=== PATIENT | male | born 1945 | race Caucasian/White ===

== ENCOUNTER 2021-02-17 13:37 | Emergency (ER) | payer MEDICARE, SELFPAY ==
[2021-02-17 13:39] VITALS: BP 141/87; PULSE 73; RESP 18; TEMP 36.5; O2SAT 97
[2021-02-17 13:58] LABS: Basophils Absolute Auto 0.1 K/mm3 (0.0-0.1); Basophils Percent Auto 0.4 % (0.2-1.2); Eosinophils Absolute Auto 0.1 K/mm3 (0-0.3); Eosinophils Percent Auto 1.2 % (0-4.4); Hematocrit 44.8 % (42.0-52.0); Hemoglobin 14.5 g/dL (14.0-18.0); Immature Granulocyte Absolute 0.06 K/mm3 (0.00-0.031); Immature Granulocyte Percent A 0.5 % (0-0.5); Lymphocytes Absolute Auto 0.73 K/mm3 (0.9-3.2); Lymphocytes Percent Auto 6.2 % (18.3-44.2); Mean Corpuscular HGB Conc 32.4 g/dl (32-36); Mean Corpuscular Hemoglobin 29.3 pg (26-34); Mean Corpuscular Volume 90.5 fl (80-100); Monocytes Absolute Auto 0.6 K/mm3 (0.1-0.6); Monocytes Percent Auto 4.7 % (2.6-8.5); Neutrophils Absolute Auto 10.3 K/mm3 (1.3-6.7); Platelet Count Result 210 k/mm3 (150-375); Red Blood Count 4.95 M/mm3 (4.6-6.20); Red Cell Distribution Width 14.6 % (11.5-14.5); White Blood Count 11.8 K/mm3 (4.5-10.0)
[2021-02-17 14:12] LABS: Alanine Aminotransferase 19 U/L (4-50); Albumin Level 4.4 g/dL (3.5-5.1); Alkaline Phosphatase 91 U/L (38-126); Anion Gap 11 mmol/L (8-16); Aspartate Amino Transferase 27 U/L (17-59); Bilirubin,Total 2.2 mg/dL (0.2-1.3); Blood Urea Nitrogen 25 mg/dL (9-20); Calcium 9.4 mg/dL (8.4-10.2); Carbon Dioxide 23 mmol/L (22-30); Chloride 105 mmol/L (98-107); Estimated CRCL calculation 36 ml/min; Estimated Glomerular Filt Rate 42; Glucose 122 mg/dL (65-110); Lipase 197 U/L (23-300); Potassium 4.3 mmol/L (3.4-5.0); Sodium 139 mmol/L (137-145)
--- NOTE | 2021-02-17 14:55 | ED.ABDPAIN ---
HPI - Abdominal Pain General Chief Complaint: Abdominal Pain Stated Complaint: LEFT flank pain, hematuria Time Seen by Provider: 02/17/21 13:58 Source: patient Mode of arrival: ambulatory Limitations: no limitations History of Present Illness HPI narrative: 75-year-old male Complains of intermittent left-sided flank pain for 2 or 3 days and now gross hematuria He does not have a fever, no particular dysuria or frequency, no nausea or vomiting He has a history of previous kidney stones most recently in 2008 to the best of his recollection but did not have hematuria with those Related Data Home Medications Medication Instructions Recorded Confirmed allopurinol 100 mg PO HS 02/17/21 02/17/21 aspirin 81 mg PO DAILY 02/17/21 02/17/21 levothyroxine 75 mcg PO DAILY 02/17/21 02/17/21 lisinopril 40 mg PO DAILY 02/17/21 02/17/21 metoprolol succinate 100 mg PO DAILY 02/17/21 02/17/21 rosuvastatin 20 mg PO HS 02/17/21 02/17/21 Allergies Allergy/AdvReac Type Severity Reaction Status Date / Time Sulfa (Sulfonamide Allergy Mild ACHEY Verified 02/17/21 13:55 Antibiotics) Review of Systems Review of Systems: All systems reviewed & are unremarkable except as noted in HPI and below Constitutional: Constitutional: Reports no additional constitutional complaints, Denies chills, Denies fever(s) and Denies headache(s) Eyes: Eyes: Reports no additional eye complaints and Denies change in vision ENT: Denies headache(s) and Denies sore throat Cardiovascular: Cardiovascular: Denies chest pain and Denies dyspnea Respiratory: Respiratory: Denies cough and Denies dyspnea Gastrointestinal: Gastrointestinal: Denies abdominal pain, Denies diarrhea, Denies nausea and Denies vomiting Genitourinary: Genitourinary: Reports hematuria, Denies dysuria and Denies urinary frequency Musculoskeletal: Musculoskeletal: Denies deformity, Denies arthralgias, Denies joint swelling and Denies numbness Integumentary/Breasts: Skin/Breast: Denies rash and Denies wounds Neurologic: Denies headache(s), Denies focal weakness and Denies numbness Psychiatric: Psychiatric: Reports no additional psychiatric complaints Endocrine: Endocrine: Reports no additional endocrine complaints Hematologic/Lymphatic: Hematologic/Lymphatic: Reports no additional hematologic/lymphatic complaints Allergic/Immunologic: Allergic/Immunologic: Reports no additional allergic/immunologic complaints [facility] Social History Social History Gender identity (if verbalized by the patient): Male Exam Const: General: cooperative, no acute distress and alert Orientation/consciousness: patient oriented x3 (alert) HENMT: Head: normal to inspection, normocephalic and atraumatic Ears: external ears normal General nose exam: no epistaxis Eyes: Conjunctivae: conjunctivae normal EOM: EOMs intact bilaterally Neck: Neck: normal visual inspection, supple and no JVD Resp: Effort & Inspection: normal respiratory effort and not labored Auscultation: other (BS =) GI: Inspection: non-distended GI Palp: Yes Soft to palpation, No Tenderness to palpation present (GI), No Guarding due to palpation present (GI) and No Rebound tenderness present : General: Yes no CVA tenderness Other: Normal Skin: General skin exam: normal color and no rashes or lesions noted Neuro: General: patient oriented x3 (alert) and moves all extremities Speech: normal speech Extrem: General: normal to inspection and no pedal edema Psych: Affect: normal affect Course Course Emergency Course: Discussed with radiology to get the correct CT urogram ordered, but, ultimately the patient decided he did not want to have a CT scan here today Gave him a referral to and he can discuss sequencing of that and/or cystoscopy for further evaluation of hematuria Vital Signs Vital signs: Vital Signs Temperature 36.5 C 02/17/21 13:39 Pulse Rate 73 02/17/21 13:39 Respiratory Rate 18 02/17/21 13:39
[2021-02-17 15:00] LABS: Add Urine Microscopic? YES; Appearance Urine Cloudy (Clear); Bilirubin Urine Negative (Negative); Blood Urine 3+ (Negative); Color Urine Yellow (Yellow); Glucose Urine UA Negative (Negative); Ketones Urine Negative (Negative); Leukocyte Esterase Ur Trace LEU/UL (Negative); Mucus Urine Rare /lpf; Nitrate Urine Negative (Negative); Protein Urine 2+ mg/dL (Negative); RBC Urine >75 /hpf (0-2); Specific Grav Ur 1.025 (1.001-1.035); WBC Urine 0-3 /hpf
--- NOTE | 2021-02-17 15:05 | PC.NURSE ---
Pt refusing to have CT scan done. EDP made aware
[2021-02-17 16:18] VITALS: BP 155/64; PULSE 60; RESP 18; TEMP 36.4; O2SAT 99
== END 2021-02-17 16:18 | disposition home or self-care (01) ==
PROVIDERS: Emergency Medicine; Emergency Provider Emergency Medicine; PCP Family Medicine
DX: R31.9 Hematuria, unspecified (principal); Z87.442 Personal history of urinary calculi; Z88.2 Allergy status to sulfonamides
CPT/HCPCS: 36415; 80053; 81001; 83690; 85025; 99283

== ENCOUNTER 2023-11-07 09:22 | Outpatient (CLI) | payer MEDICARE, SELFPAY ==
[2023-11-07 10:11] LABS: Basophils Absolute Auto 0.1 K/mm3 (0.0-0.1); Basophils Percent Auto 0.8 % (0.2-1.2); Eosinophils Absolute Auto 0.6 K/mm3 (0-0.3); Eosinophils Percent Auto 9.4 % (0-4.4); Hemoglobin 14.4 g/dL (14.0-18.0); Immature Granulocyte Absolute 0.01 K/mm3 (0.00-0.031); Immature Granulocyte Percent A 0.2 % (0-0.5); Lymphocytes Absolute Auto 1.12 K/mm3 (0.9-3.2); Lymphocytes Percent Auto 17.8 % (18.3-44.2); Mean Corpuscular HGB Conc 32.7 g/dl (32-36); Mean Corpuscular Hemoglobin 30.1 pg (26-34); Mean Corpuscular Volume 92.1 fl (80-100); Mean Platelet Volume 10.6 fl (7.4-10.4); Monocytes Absolute Auto 0.5 K/mm3 (0.1-0.6); Monocytes Percent Auto 7.1 % (2.6-8.5); Neutrophils Absolute Auto 4.1 K/mm3 (1.3-6.7); Neutrophils Percent Auto 64.7 % (45.5-73.1); Platelet Count Result 187 k/mm3 (150-375); Red Blood Count 4.78 M/mm3 (4.6-6.20); Red Cell Distribution Width 14.6 % (11.5-14.5); White Blood Count 6.3 K/mm3 (4.5-10.0)
[2023-11-07 10:52] LABS: Alanine Aminotransferase 21 U/L (6-50); Albumin Level 4.5 g/dL (3.5-5.1); Alkaline Phosphatase 90 U/L (38-126); Anion Gap 9 mmol/L (4-12); Aspartate Amino Transferase 28 U/L (17-59); Bilirubin,Total 2.2 mg/dL (0.2-1.3); Blood Urea Nitrogen 20 mg/dL (9-20); Calcium 9.4 mg/dL (8.4-10.2); Carbon Dioxide 24 mmol/L (22-30); Chloride 110 mmol/L (98-107); Cholesterol 107 mg/dL (0-200); Estimated Glomerular Filt Rate 53; Glucose 112 mg/dL (65-110); HDL Direct 31 mg/dL; Potassium 4.1 mmol/L (3.4-5.0); Sodium 143 mmol/L (137-145); Triglycerides 133 mg/dL (<150)
[2023-11-07 11:03] LABS: LDL Cholesterol Direct 61 mg/dL
[2023-11-07 11:23] LABS: Prostate Specific Antigen 12.5 ng/mL (< OR = 4.0)
== END 2023-11-07 09:23 | disposition home or self-care (01) ==
PROVIDERS: PCP Family Medicine; Referring Provider Nurse Practitioner Adult Health; Visit Provider Family Medicine
DX: Z12.5 Encounter for screening for malignant neoplasm of prostate (principal); D64.9 Anemia, unspecified; E78.2 Mixed hyperlipidemia; E03.9 Hypothyroidism, unspecified; I10 Essential (primary) hypertension; I63.50 Cerebral infarction due to unspecified occlusion or stenosis of unspecified cerebral artery; I25.10 Atherosclerotic heart disease of native coronary artery without angina pectoris
CPT/HCPCS: 36415; 80053; 80061; 84153; 84443; 85025; G0103

== ENCOUNTER 2024-11-09 08:13 | Outpatient (CLI) | payer MEDICARE, SELFPAY ==
--- OUTSIDE RECORDS SUMMARY | 2024-11-09 08:25 | XMS_ITS | Data Portability ---
Author Organization [facility], Main Office Address [address] [place] [address] Assessment No assessment recorded. Plan of Treatment Reminders Order Date Submit Date Provider Last Modified By Organization Details Last Modified Time Details Appointments None recorded. Lab uric acid, serum or plasma 2022 023 [facility] (Lab), [address] [place], [address], 20:19:25 lipid panel, serum 2022 023 [facility] (Lab), [address] [place], [address], 20:19:30 hepatic function panel, serum 2022 023 [facility] (Lab), [address] [place], [address], 20:19:47 PSA, total, serum or plasma 2022 023 [facility] (Lab), [address] [place], [address], 20:33:54 CBC w/ auto diff 2022 023 [facility] (Lab), [address] [place], [address], 20:13:13 BMP, serum or plasma 2022 023 [facility] (Lab), [address] [place], [address], 3 20:19:20 TSH, serum or plasma 2022 023 [facility] (Lab), [address] [place], [address], 3 20:33:38 T4, free, serum 2022 023 [facility] (Lab), [address] [place], [address], 3 20:17:07 uric acid, serum or plasma [address] (Lab), [address] [place], [address], 3 14:53:42 CBC w/ auto diff [address] (Lab), [address] [place], [address], 3 14:51:38 BMP, serum or plasma [address] (Lab), [address] [place], [address], 3 14:52:25 TSH, serum or plasma [address] (Lab), [address] [place], [address], 3 14:54:11 T4, free, serum [address] (Lab), [address] [place], [address], 3 14:54:55 lipid panel, serum [address] (Lab), [address] [place], [address], 14:52:46 hepatic function panel, serum [address] (Lab), [address] [place], [address], 14:53:20 Referral None recorded. Procedures None recorded. Surgeries None recorded. Imaging None recorded. Medication Orders None recorded. Patient TargetsNo targets recorded. Patient Instructions Encounter Date Encounter Id Patient Instructions Last Modified By Organization Details Last Modified Time 05/02/2023 [id number] dementia rating scale-2* Not available 05/02/2023 11:31:52 multi-dimensiona l health assessment questionnaire* [email or web address] Not available 05/02/2023 11:31:56 Personalized [facility] Plan and Screening Recommendations Advance Directives - Do you have one? Advance Directives - Do we have your advance directive on file in your health record? Primary Prevention/Interven tion (prevents or decreases the chance of common diseases from occurring) Smoking Risk: Non Smoker Alcohol Misuse Screening: Weight: Physical activity: Appropriate physical activity Nutrition: Fall Risk (screened today): Vaccines Pneumococcal: Ordered Recommended today Recommended today, but you have declined Influenza: Ordered Recommended today Recommended today, but you have declined Chronic Disease Risks Stroke: I have no recommendations Act migel diagnosis, Continue current treatment plan Heart Attack: I have no recommendations Act migel diagnosis, Continue current treatment plan Clogging of the Arteries: I have no recommendations Act migel diagnosis, Continue current treatment plan Diabetes: Active diagnosis, Continue current treatment plan Secondary Prevention/Interven tion (detects treatable diseases before they may cause symptoms, disability, or ) Prostate Cancer Screening: Colon Cancer Screening: Colonoscopy No screening necessary Date Screening Last Performed: Eye Disease Screening: Dementia Risk: Depression Screening: Active diagnosis, Continue current treatment plan Not available 05/02/2023 10:43:04 Reason for Referral None Reported. Results Created Date Observation Date Name Description Value Unit Range Abnormal Flag Note LastModifiedBy Organization Detail LastModifiedTime 03/20/202022 BASIC METAB OLIC PANEL sodium 142 mmol/ L 137-14 5 Not Available [facility] (Lab) [address] [place], [address], 03/20/2022 20:56:06 03/20/20 22 03/20/2022 BASIC METAB OLIC PANEL potassium 4.3 mmol/ L 3.5-5. 1 Not Available [facility] (Lab) [address] [place], [address], 03/20/2022 20:56:06 03/20/20 22 03/20/2022 BASIC METAB OLIC PANEL chloride 105 mmol/ L 98-107 Not Available [facility] (Lab) [address] [place], [address], 03/20/2022 20:56:06 03/20/20 22 03/20/2022 BASIC METAB OLIC PANEL carbon dioxide 26 mmol/ L 22-30 Not Available [facility] (Lab) [address] [place], [address], 03/20/2022 20:56:06 03/20/20 22 03/20/2022 BASIC METAB OLIC PANEL anion gap 15.3 mmol/ L 14-22 Not Available [facility] (Lab) [address] [place], [address], 03/20/2022 20:56:06 03/20/20 22 03/20/2022 BASIC METAB OLIC PANEL glucose 108 mg/dL 70-99 high Not Available [facility] (Lab) [address] [place], [address], 03/20/2022 20:56:06 03/20/20 22 03/20/2022 BASIC METAB OLIC PANEL BUN 19 mg/dL 8-19 Not Available [facility] (Lab) [address] [place], [address], 03/20/2022 20:56:03/20/2003/20/2022 BASIC METAB OLIC PANEL creatinine 1.32 mg/dL 0.66-1 .25 high Not Available [facility] (Lab) [address] [place], [address], 03/20/2022 20:56:03/20/20 22 03/20/2022 BASIC METAB OLIC PANEL GFR 53 Refer ence Range : Gamerco ge GFR Healt hy Adult : >60 mL/mi n/1.7 3 m2 Chron ic Kidne y Disea se: 15-60 mL/mi n/1.7 3 m2 Kidne y Failu re: <15/m L/min /1.73 m2 www.n iddk. nih.g ov The MDRD study equat ion has not been valid ated in child kd <18 years of age; pregn ant women ; the elder ly >85 years of age; or in some racia l or ethni c subgr oups, such as Hispa nics. Outsi de the valid ated sariah eters , estim ated GFR is less accur ate, requi ring clini darrell judgm ent on a case- by-ca se basis . Clini darrell inter preta tion for other races and ages must be made by the clini ezra. The MDRD study equat ion has not been valid ated for the evalu ation of serum creat inine relat ed to nutri sonja l statu s or medic ation usage . For perso ns <18 years of age, a pedia tric GFR calcu lator is avail able on the F websi te: https ://ww w.kid jennifer.o rg/pr ofess ional s/kdo qi/gf r_cal culat or Not Available [facility] (Lab) [address] [place], [address], 03/20/2022 20:56:03/20/2003/20/2022 BASIC METAB OLIC PANEL calcium 9.5 mg/dL 8.4-10 .2 Not Available [facility] (Lab) [address] [place], [address], 03/20/2022 20:56:06 03/20/20 22 03/20/2022 PSA, TOTAL PSA, total 8.14 NG/mL 0.00-4 .00 high Not Available [facility] (Lab) [address] [place], [address], 03/20/2022 21:36:29 03/20/20 22 03/20/2022 TSH thyroid-stim ulating hormone 5.220 uIU/m L 0.465- 4.680 high Not Available [facility] (Lab) [address] [place], [address], 03/20/2022 21:36:24 03/20/20 22 03/20/2022 T4 FREE free T4 1.34 NG/dL 0.78-2 .19 Not Available [facility] (Lab) [address] [place], [address], 03/20/2022 20:59:37 03/20/20 22 03/20/2022 HEPAT IC/LI REGULO PANEL alkaline phosphatase 84 U/L 38-126 Not Available [facility] (Lab) [address] [place], [address], 03/20/2022 20:56:20 03/20/20 22 03/20/2022 HEPAT IC/LI REGULO PANEL alanine aminotransfe rase 16 U/L 0-50 Not Available [facility] (Lab) [address] [place], [address], 03/20/2022 20:56:20 03/20/20 22 03/20/2022 HEPAT IC/LI REGULO PANEL aspartate aminotransfe rase 24 U/L 15-46 Not Available [facility] (Lab) [address] [place], [address], 03/20/2022 20:56:20 03/20/20 22 03/20/2022 HEPAT IC/LI REGULO PANEL bilirubin, total 1.70 mg/dL 0.20-1 .30 high Not Available [facility] (Lab) [address] [place], [address], 03/20/2022 20:56:20 03/20/20 22 03/20/2022 HEPAT IC/LI REGULO PANEL bilirubin, conjugated (direct) 0.00 mg/dL 0.00-0 .30 Not Available [facility] (Lab) [address] [place], [address], 03/20/2022 20:56:20 03/20/20 22 03/20/2022 HEPAT IC/LI REGULO PANEL biliurubin,u ncong. (indirect) 1.20 mg/dL 0.00-1 .1 high Not Available [facility] (Lab) [address] [place], [address], 03/20/2022 20:56:20 03/20/20 22 03/20/2022 HEPAT IC/LI REGULO PANEL total protein 8.1 g/dL 6.3-8. 2 Not Available [facility] (Lab) [address] [place], [address], 03/20/2022 20:56:20 03/20/20 22 03/20/2022 HEPAT IC/LI REGULO PANEL albumin 4.6 g/dL 3.0-4. 4 high Not Available [facility] (Lab) [address] [place], [address], 03/20/2022 20:56:20 03/20/20 22 03/20/2022 HEPAT IC/LI REGULO PANEL globulin 3.5 g/dL 2.6-4. 2 Not Available [facility] (Lab) [address] [place], [address], 03/20/2022 20:56:20 03/20/20 22 03/20/2022 HEPAT IC/LI REGULO PANEL A/G ratio 1.3 ratio 1.0-2. 0 Not Available [facility] (Lab) [address] [place], [address], 03/20/2022 20:56:20 03/20/20 22 03/20/2022 LIPID PANEL cholesterol 109 mg/dL 140-19 9 low NIH SHADIA NSUS RECOM MENDA TION FOR CARLIN STERO L: ADULT CHILD LOW RISK: <200 <170 BORDE RLINE : <200- 239 ----- HIGH RISK: >240 >200 Not Available [facility] (Lab) [address] [place], [address], 03/20/2022 20:56:16 03/20/20 22 03/20/2022 LIPID PANEL triglyceride s 184 mg/dL 0-150 high NIH SHADIA NSUS REPOR T RECOM MENDA TION FOR TRIGL YCERI BONNIE: ADULT CHILD LOW RISK: <150 ----- BODER LINE: 150-1 99 ----- HIGH RISK: >200 ----- Not Available [facility] (Lab) [address] [place], [address], 03/20/2022 20:56:16 03/20/20 22 03/20/2022 LIPID PANEL HDL cholesterol 29 mg/dL 40- low Not Available [facility] (Lab) [address] [place], [address], 03/20/2022 20:56:16 03/20/20 22 03/20/2022 LIPID PANEL LDL cholesterol, calculated 43 mg/dL 0-130 NIH SHADIA NSUS REPOR T RECOM MENDA TIONS FOR LDL: ADULT CHILD LOW RISK <130 <110 (OPTI MAL LDL) <100 ----- BORDE RLINE : 130-1 59 ----- HIGH RISK: >160 >130 A TRIGL YCERI DE RESUL T >400 INVAL IDATE S THE CALCU LATIO N FOR LDL FRACT IONAT ION - THE LDL RESUL T WILL NOT BE REPOR LUIS. Not Available [facility] (Lab) [address] [place], [address], 03/20/2022 20:56:16 03/20/20 22 03/20/2022 URIC ACID SERUM uric acid 6.1 mg/dL 3.5-8. 5 Not Available [facility] (Lab) [address] [place], [address], 03/20/2022 20:56:10 03/20/20 22 03/20/2022 CBC/C OMPLE TE BLD COUNT W/DIF F white blood cells 7.0 x10'3 /uL 4.2-10 .8 Not Available [facility] (Lab) [address] [facility] [place], [address], 03/20/2022 20:10:52 03/20/20 22 03/20/2022 CBC/C OMPLE TE BLD COUNT W/DIF F red blood cells 4.82 x10'6 /uL 4.10-5 .80 Not Available [facility] (Lab) [address] [place], [address], 03/20/2022 20:10:52 03/20/20 22 03/20/2022 CBC/C OMPLE TE BLD COUNT W/DIF F hemoglobin 14.2 g/dL 13.2-1 7.0 Not Available [facility] (Lab) [address] [place], [address], 03/20/2022 20:10:52 03/20/20 22 03/20/2022 CBC/C OMPLE TE BLD COUNT W/DIF F hematocrit 45.3 % 39.3-5 0.0 Not Available [facility] (Lab) [address] [place], [address], 03/20/2022 20:10:52 03/20/20 22 03/20/2022 CBC/C OMPLE TE BLD COUNT W/DIF F mean red cell volume 94.0 fL 80.0-9 7.0 Not Available [facility] (Lab) [address] [place], [address], 03/20/2022 20:10:52 03/20/20 22 03/20/2022 CBC/C OMPLE TE BLD COUNT W/DIF F mean red cell hemoglobin 29.5 pg 27.0-3 3.0 Not Available [facility] (Lab) [address] [place], [address], 03/20/2022 20:10:52 03/20/20 22 03/20/2022 CBC/C OMPLE TE BLD COUNT W/DIF F mean RBC HGB concentratio n 31.3 g/dL 31.0-3 6.0 Not Available [facility] (Lab) [address] [place], [address], 03/20/2022 20:10:52 03/20/20 22 03/20/2022 CBC/C OMPLE TE BLD COUNT W/DIF F red cell distribution width 14.6 % 11.8-1 5.5 Not Available [facility] (Lab) [address] [place], [address], 03/20/2022 20:10:52 03/20/20 22 03/20/2022 CBC/C OMPLE TE BLD COUNT W/DIF F platelets 242 x10'3 /uL 150-40 0 Not Available [facility] (Lab) [address] [place], [address], 03/20/2022 20:10:52 03/20/20 22 03/20/2022 CBC/C OMPLE TE BLD COUNT W/DIF F mean platelet volume 11.4 fL 9.0-12 .4 Not Available [facility] (Lab) [address] [place], [address], 03/20/2022 20:10:52 03/20/20 22 03/20/2022 CBC/C OMPLE TE BLD COUNT W/DIF F neutrophils 66.6 % 39.0-7 2.0 Not Available [facility] (Lab) [address] [place], [address], 03/20/2022 20:10:52 03/20/20 22 03/20/2022 CBC/C OMPLE TE BLD COUNT W/DIF F lymphocytes 17.6 % 16.0-4 7.0 Not Available [facility] (Lab) [address] [place], [address], 03/20/2022 20:10:52 03/20/20 22 03/20/2022 CBC/C OMPLE TE BLD COUNT W/DIF F monocytes 7.9 % 5.0-12 .0 Not Available [facility] (Lab) [address] [place], [address], 03/20/2022 20:10:52 03/20/20 22 03/20/2022 CBC/C OMPLE TE BLD COUNT W/DIF F eosinophils 6.9 % 1.0-7. 0 Not Available [facility] (Lab) [address] [place], [address], 03/20/2022 20:10:52 03/20/20 22 03/20/2022 CBC/C OMPLE TE BLD COUNT W/DIF F basophils 0.9 % 0.0-2. 0 Not Available [facility] (Lab) [address] [place], [address], 03/20/2022 20:10:52 03/20/20 22 03/20/2022 CBC/C OMPLE TE BLD COUNT W/DIF F immature granulocytes 0.1 % 0.00-0 .50 Not Available [facility] (Lab) [address] [place], [address], 03/20/2022 20:10:52 03/20/20 22 03/20/2022 CBC/C OMPLE TE BLD COUNT W/DIF F neutrophils, absolute count 4.63 x10'3 /uL 1.5-8. 0 Not Available [facility] (Lab) [address] [place], [address], 03/20/2022 20:10:52 03/20/20 22 03/20/2022 CBC/C OMPLE TE BLD COUNT W/DIF F lymphocytes, absolute count 1.22 x10'3 /uL 1.07-3 .43 Not Available [facility] (Lab) [address] [place], [address], 03/20/2022 20:10:52 03/20/20 22 03/20/2022 CBC/C OMPLE TE BLD COUNT W/DIF F monocytes, absolute count 0.55 x10'3 /uL 0.29-0 .99 Not Available [facility] (Lab) [address] [place], [address], 03/20/2022 20:10:52 03/20/20 22 03/20/2022 CBC/C OMPLE TE BLD COUNT W/DIF F eosinophils, absolute count 0.48 x10'3 /uL 0.02-0 .53 Not Available [facility] (Lab) [address] [place], [address], 03/20/2022 20:10:52 03/20/20 22 03/20/2022 CBC/C OMPLE TE BLD COUNT W/DIF F basophils, absolute count 0.06 x10'3 /uL 0.01-0 .08 Not Available [facility] (Lab) [address] [place], [address], 03/20/2022 20:10:52 03/20/20 22 03/20/2022 CBC/C OMPLE TE BLD COUNT W/DIF F immature granulocytes ,absolute 0.01 x10'3 /uL 0.00-0 .05 Not Available [facility] (Lab) [address] [place], [address], 03/20/2022 20:10:52 03/20/20 22 03/20/2022 CBC/C OMPLE TE BLD COUNT W/DIF F nucleated red blood cells 0.0 % -0 Not Available [facility] (Lab) [address] [place], [address], 03/20/2022 20:10:52 03/20/20 22 03/20/2022 CBC/C OMPLE TE BLD COUNT W/DIF F NRBC# 0.00 x10'3 /uL Not Available [facility] (Lab) [address] [place], [address], 03/20/2022 20:10:52 06/18/20 22 06/20/2022 T4 FREE free T4 1.56 NG/dL 0.78-2 .19 Not Available [facility] (Lab) [address] [place], [address], 06/20/2022 21:36:08 06/18/20 22 06/18/2022 TSH thyroid-stim ulating hormone 0.363 uIU/m L 0.465- 4.680 low Not Available [facility] (Lab) [address] [place], [address], 06/18/2022 22:02:52 06/18/20 22 06/18/2022 THYRO XINE/ T4 TOTAL T4, total 9.69 mcg/d L 5.53-1 1.00 Not Available [facility] (Lab) [address] [place], [address], 06/18/2022 21:50:12 12/18/19 23 12/17/2022 CBC/C OMPLE TE BLD COUNT W/DIF F white blood cells 7.3 x10'3 /uL 4.2-10 .8 Not Available [facility] (Lab) [address] [place], [address], 12/17/2022 20:31:45 12/18/19 23 12/17/2022 CBC/C OMPLE TE BLD COUNT W/DIF F red blood cells 4.83 x10'6 /uL 4.10-5 .80 Not Available [facility] (Lab) [address] [place], [address], 12/17/2022 20:31:45 12/18/19 23 12/17/2022 CBC/C OMPLE TE BLD COUNT W/DIF F hemoglobin 14.4 g/dL 13.2-1 7.0 Not Available [facility] (Lab) [address] [facility] [place], [address], 12/17/2022 20:31:45 12/18/19 23 12/17/2022 CBC/C OMPLE TE BLD COUNT W/DIF F hematocrit 45.0 % 39.3-5 0.0 Not Available [facility] (Lab) [address] [place], [address], 12/17/2022 20:31:45 12/18/19 23 12/17/2022 CBC/C OMPLE TE BLD COUNT W/DIF F mean red cell volume 93.2 fL 80.0-9 7.0 Not Available [facility] (Lab) [address] [place], [address], 12/17/2022 20:31:45 12/18/19 23 12/17/2022 CBC/C OMPLE TE BLD COUNT W/DIF F mean red cell hemoglobin 29.8 pg 27.0-3 3.0 Not Available [facility] (Lab) [address] [place], [address], 12/17/2022 20:31:45 12/18/19 23 12/17/2022 CBC/C OMPLE TE BLD COUNT W/DIF F mean RBC HGB concentratio n 32.0 g/dL 31.0-3 6.0 Not Available [facility] (Lab) [address] [place], [address], 12/17/2022 20:31:45 12/18/19 23 12/17/2022 CBC/C OMPLE TE BLD COUNT W/DIF F red cell distribution width 14.1 % 11.8-1 5.5 Not Available [facility] (Lab) [address] [place], [address], 12/17/2022 20:31:45 12/18/19 23 12/17/2022 CBC/C OMPLE TE BLD COUNT W/DIF F platelets 219 x10'3 /uL 150-40 0 Not Available [facility] (Lab) [address] [place], [address], 12/17/2022 20:31:45 12/18/19 23 12/17/2022 CBC/C OMPLE TE BLD COUNT W/DIF F mean platelet volume 11.6 fL 9.0-12 .4 Not Available [facility] (Lab) [address] [place], [address], 12/17/2022 20:31:45 12/18/19 23 12/17/2022 CBC/C OMPLE TE BLD COUNT W/DIF F neutrophils 69.2 % 39.0-7 2.0 Not Available [facility] (Lab) [address] [place], [address], 12/17/2022 20:31:45 12/18/19 23 12/17/2022 CBC/C OMPLE TE BLD COUNT W/DIF F lymphocytes 13.9 % 16.0-4 7.0 low Not Available [facility] (Lab) [address] [place], [address], 12/17/2022 20:31:45 12/18/19 23 12/17/2022 CBC/C OMPLE TE BLD COUNT W/DIF F monocytes 7.0 % 5.0-12 .0 Not Available [facility] (Lab) [address] [place], [address], 12/17/2022 20:31:45 12/18/19 23 12/17/2022 CBC/C OMPLE TE BLD COUNT W/DIF F eosinophils 8.5 % 1.0-7. 0 high Not Available [facility] (Lab) [address] [place], [address], 12/17/2022 20:31:45 12/18/19 23 12/17/2022 CBC/C OMPLE TE BLD COUNT W/DIF F basophils 1.0 % 0.0-2. 0 Not Available [facility] (Lab) [address] [place], [address], 12/17/2022 20:31:45 12/18/19 23 12/17/2022 CBC/C OMPLE TE BLD COUNT W/DIF F immature granulocytes 0.4 % 0.00-0 .50 Not Available [facility] (Lab) [address] [place], [address], 12/17/2022 20:31:45 12/18/19 23 12/17/2022 CBC/C OMPLE TE BLD COUNT W/DIF F neutrophils, absolute count 5.08 x10'3 /uL 1.5-8. 0 Not Available [facility] (Lab) [address] [place], [address], 12/17/2022 20:31:45 12/18/19 23 12/17/2022 CBC/C OMPLE TE BLD COUNT W/DIF F lymphocytes, absolute count 1.02 x10'3 /uL 1.07-3 .43 low Not Available [facility] (Lab) [address] [place], [address], 12/17/2022 20:31:45 12/18/19 23 12/17/2022 CBC/C OMPLE TE BLD COUNT W/DIF F monocytes, absolute count 0.51 x10'3 /uL 0.29-0 .99 Not Available [facility] (Lab) [address] [place], [address], 12/17/2022 20:31:45 06/12/20 23 12/17/2022 CBC/C OMPLE TE BLD COUNT W/DIF F eosinophils, absolute count 0.62 x10'3 /uL 0.02-0 .53 high Not Available [facility] (Lab) [address] [place], [address], 12/17/2022 20:31:45 12/18/19 23 12/17/2022 CBC/C OMPLE TE BLD COUNT W/DIF F basophils, absolute count 0.07 x10'3 /uL 0.01-0 .08 Not Available [facility] (Lab) [address] [place], [address], 12/17/2022 20:31:45 12/18/19 23 12/17/2022 CBC/C OMPLE TE BLD COUNT W/DIF F immature granulocytes ,absolute 0.03 x10'3 /uL 0.00-0 .05 Not Available [facility] (Lab) [address] [place], [address], 12/17/2022 20:31:45 12/18/19 23 12/17/2022 CBC/C OMPLE TE BLD COUNT W/DIF F nucleated red blood cells 0.0 % -0 Not Available [facility] (Lab) [address] [place], [address], 12/17/2022 20:31:45 12/18/19 23 12/17/2022 CBC/C OMPLE TE BLD COUNT W/DIF F NRBC# 0.00 x10'3 /uL Not Available [facility] (Lab) [address] [place], [address], 12/17/2022 20:31:45 12/18/19 23 12/17/2022 BASIC METAB OLIC PANEL sodium 142 mmol/ L 137-14 5 Not Available [facility] (Lab) [address] [place], [address], 12/17/2022 20:52:17 12/18/19 23 12/17/2022 BASIC METAB OLIC PANEL potassium 4.2 mmol/ L 3.5-5. 1 Not Available [facility] (Lab) [address] [place], [address], 12/17/2022 20:52:17 12/18/19 23 12/17/2022 BASIC METAB OLIC PANEL chloride 106 mmol/ L 98-107 Not Available [facility] (Lab) [address] [place], [address], 12/17/2022 20:52:17 12/18/19 23 12/17/2022 BASIC METAB OLIC PANEL carbon dioxide 23 mmol/ L 22-30 Not Available [facility] (Lab) [address] [place], [address], 12/17/2022 20:52:17 12/18/19 23 12/17/2022 BASIC METAB OLIC PANEL anion gap 17.2 mmol/ L 14-22 Not Available [facility] (Lab) [address] [place], [address], 12/17/2022 20:52:17 12/18/19 23 12/17/2022 BASIC METAB OLIC PANEL glucose 111 mg/dL 70-99 high Not Available [facility] (Lab) [address] [place], [address], 12/17/2022 20:52:17 12/18/19 23 12/17/2022 BASIC METAB OLIC PANEL BUN 19 mg/dL 8-19 Not Available [facility] (Lab) [address] [place], [address], 12/17/2022 20:52:17 12/18/19 23 12/17/2022 BASIC METAB OLIC PANEL creatinine 1.18 mg/dL 0.66-1 .25 Not Available [facility] (Lab) [address] [place], [address], 12/17/2022 20:52:17 12/18/19 23 12/17/2022 BASIC METAB OLIC PANEL GFR 60 Refer ence Range : Gamerco ge GFR Healt hy Adult : >60 mL/mi n/1.7 3 m2 Chron ic Kidne y Disea se: 15-60 mL/mi n/1.7 3 m2 Kidne y Failu re: <15/m L/min /1.73 m2 www.n iddk. nih.g ov The MDRD study equat ion has not been valid ated in child kd <18 years of age; pregn ant women ; the elder ly >85 years of age; or in some racia l or ethni c subgr oups, such as Hispa nics. Outsi de the valid ated sariah eters , estim ated GFR is less accur ate, requi ring clini darrell judgm ent on a case- by-ca se basis . Clini darrell inter preta tion for other races and ages must be made by the clini ezra. The MDRD study equat ion has not been valid ated for the evalu ation of serum creat inine relat ed to nutri sonja l statu s or medic ation usage . For perso ns <18 years of age, a pedia tric GFR calcu lator is avail able on the [facility] websi te: https :[email or web address] w.anjelica rodriguez.o sara/pr ofess ional s/kdo qi/gf r_cal culat or Not Available [facility] (Lab) [address] [place], [address], 12/17/2022 20:52:17 12/18/1912/17/2022 BASIC METAB OLIC PANEL calcium 9.2 mg/dL 8.4-10 .2 Not Available [facility] (Lab) [address] [place], [address], 12/17/2022 20:52:17 12/18/19 23 12/17/2022 URIC ACID SERUM uric acid 5.6 mg/dL 3.5-8. 5 Not Available [facility] [facility] (Lab) [address] [place], [address], 12/17/2022 20:52:18 12/18/19 23 12/17/2022 LIPID PANEL cholesterol 117 mg/dL 140-19 9 low NIH SHADIA NSUS RECOM MENDA TION FOR CARLIN STERO L: ADULT CHILD LOW RISK: <200 <170 BORDE RLINE : <200- 239 ----- HIGH RISK: >240 >200 Not Available [facility] (Lab) [address] [place], [address], 12/17/2022 20:52:23 12/18/19 23 12/17/2022 LIPID PANEL triglyceride s 232 mg/dL 0-150 high NIH SHADIA NSUS REPOR T RECOM MENDA TION FOR TRIGL YCERI BONNIE: ADULT CHILD LOW RISK: <150 ----- BODER LINE: 150-1 99 ----- HIGH RISK: >200 ----- Not Available [facility] (Lab) [address] [place], [address], 12/17/2022 20:52:23 12/18/19 23 12/17/2022 LIPID PANEL HDL cholesterol 30 mg/dL 40- low Not Available [facility] (Lab) [address] [place], [address], 12/17/2022 20:52:23 12/18/19 23 12/17/2022 LIPID PANEL LDL cholesterol, calculated 41 mg/dL 0-130 NIH SHADIA NSUS REPOR T RECOM MENDA TIONS FOR LDL: ADULT CHILD LOW RISK <130 <110 (OPTI MAL LDL) <100 ----- BORDE RLINE : 130-1 59 ----- HIGH RISK: >160 >130 A TRIGL YCERI DE RESUL T >400 INVAL IDATE S THE CALCU LATIO N FOR LDL FRACT IONAT ION - THE LDL RESUL T WILL NOT BE REPOR LUIS. Not Available [facility] (Lab) [address] [place], [address], 12/17/2022 20:52:23 12/18/19 23 12/17/2022 HEPAT IC/LI REGULO PANEL alkaline phosphatase 84 U/L 38-126 Not Available [facility] (Lab) [address] [place], [address], 12/17/2022 20:52:24 12/18/19 23 12/17/2022 HEPAT IC/LI REGULO PANEL alanine aminotransfe rase 21 U/L 0-50 Not Available [facility] (Lab) [address] [place], [address], 12/17/2022 20:52:24 12/18/19 23 12/17/2022 HEPAT IC/LI REGULO PANEL aspartate aminotransfe rase 25 U/L 15-46 Not Available [facility] (Lab) [address] [place], [address], 12/17/2022 20:52:24 12/18/19 23 12/17/2022 HEPAT IC/LI REGULO PANEL bilirubin, total 1.70 mg/dL 0.20-1 .30 high Not Available [facility] (Lab) [address] [place], [address], 12/17/2022 20:52:24 12/18/19 23 12/17/2022 HEPAT IC/LI REGULO PANEL bilirubin, conjugated (direct) 0.00 mg/dL 0.00-0 .30 Not Available [facility] (Lab) [address] [place], [address], 12/17/2022 20:52:24 12/18/19 23 12/17/2022 HEPAT IC/LI REGULO PANEL biliurubin,u ncong. (indirect) 1.40 mg/dL 0.00-1 .1 high Not Available [facility] (Lab) [address] [place], [address], 12/17/2022 20:52:24 12/18/19 23 12/17/2022 HEPAT IC/LI REGULO PANEL total protein 7.6 g/dL 6.3-8. 2 Not Available [facility] (Lab) [address] [place], [address], 12/17/2022 20:52:24 12/18/19 23 12/17/2022 HEPAT IC/LI REGULO PANEL albumin 3.9 g/dL 3.0-4. 4 Not Available [facility] (Lab) [address] [place], [address], 12/17/2022 20:52:24 12/18/19 23 12/17/2022 HEPAT IC/LI REGULO PANEL globulin 3.7 g/dL 2.6-4. 2 Not Available [facility] (Lab) [address] [place], [address], 12/17/2022 20:52:24 12/18/19 23 12/17/2022 HEPAT IC/LI REGULO PANEL A/G ratio 1.1 ratio 1.0-2. 0 Not Available [facility] (Lab) [address] [place], [address], 12/17/2022 20:52:24 12/18/19 23 12/17/2022 T4 FREE free T4 1.32 NG/dL 0.78-2 .19 Not Available [facility] (Lab) [address] [place], [address], 12/17/2022 20:53:32 12/18/19 23 12/17/2022 TSH thyroid-stim ulating hormone 4.020 uIU/m L 0.465- 4.680 Not Available [facility] (Lab) [address] [place], [address], 12/17/2022 21:26:46 05/02/20 23 05/02/2023 CBC/C OMPLE TE BLD COUNT W/DIF F white blood cells 7.0 x10'3 /uL 4.2-10 .8 Not Available [facility] (Lab) [address] [place], [address], 05/02/2023 20:13:13 05/02/2005/02/2023 CBC/C OMPLE TE BLD COUNT W/DIF F red blood cells 4.77 x10'6 /uL 4.10-5 .80 Not Available [facility] (Lab) [address] [place], [address], 05/02/2023 20:13:13 05/02/2005/02/2023 CBC/C OMPLE TE BLD COUNT W/DIF F hemoglobin 14.7 g/dL 13.2-1 7.0 Not Available [facility] (Lab) [address] [place], [address], 05/02/2023 20:13:13 05/02/2005/02/2023 CBC/C OMPLE TE BLD COUNT W/DIF F hematocrit 45.5 % 39.3-5 0.0 Not Available [facility] (Lab) [address] [place], [address], 05/02/2023 20:13:13 05/02/2005/02/2023 CBC/C OMPLE TE BLD COUNT W/DIF F mean red cell volume 95.4 fL 80.0-9 7.0 Not Available [facility] (Lab) [address] [place], [address], 05/02/2023 20:13:13 05/02/2005/02/2023 CBC/C OMPLE TE BLD COUNT W/DIF F mean red cell hemoglobin 30.8 pg 27.0-3 3.0 Not Available [facility] (Lab) [address] [place], [address], 05/02/2023 20:13:13 05/02/2005/02/2023 CBC/C OMPLE TE BLD COUNT W/DIF F mean RBC HGB concentratio n 32.3 g/dL 31.0-3 6.0 Not Available [facility] (Lab) [address] [place], [address], 05/02/2023 20:13:13 05/02/2005/02/2023 CBC/C OMPLE TE BLD COUNT W/DIF F red cell distribution width 14.6 % 11.8-1 5.5 Not Available [facility] (Lab) [address] [place], [address], 05/02/2023 20:13:13 05/02/2005/02/2023 CBC/C OMPLE TE BLD COUNT W/DIF F platelets 216 x10'3 /uL 150-40 0 Not Available [facility] (Lab) [address] [place], [address], 05/02/2023 20:13:13 05/02/2005/02/2023 CBC/C OMPLE TE BLD COUNT W/DIF F mean platelet volume 11.3 fL 9.0-12 .4 Not Available [facility] (Lab) [address] [place], [address], 05/02/2023 20:13:13 05/02/2005/02/2023 CBC/C OMPLE TE BLD COUNT W/DIF F neutrophils 68.8 % 39.0-7 2.0 Not Available [facility] (Lab) [address] [place], [address], 05/02/2023 20:13:13 05/02/2005/02/2023 CBC/C OMPLE TE BLD COUNT W/DIF F lymphocytes 15.2 % 16.0-4 7.0 low Not Available [facility] (Lab) [address] [place], [address], 05/02/2023 20:13:13 05/02/2005/02/2023 CBC/C OMPLE TE BLD COUNT W/DIF F monocytes 6.7 % 5.0-12 .0 Not Available [facility] (Lab) [address] [place], [address], 05/02/2023 20:13:13 05/02/2005/02/2023 CBC/C OMPLE TE BLD COUNT W/DIF F eosinophils 8.1 % 1.0-7. 0 high Not Available [facility] (Lab) [address] [place], [address], 05/02/2023 20:13:13 05/02/2005/02/2023 CBC/C OMPLE TE BLD COUNT W/DIF F basophils 0.9 % 0.0-2. 0 Not Available [facility] (Lab) [address] [place], [address], 05/02/2023 20:13:13 05/02/2005/02/2023 CBC/C OMPLE TE BLD COUNT W/DIF F immature granulocytes 0.3 % 0.00-0 .50 Not Available [facility] (Lab) [address] [place], [address], 05/02/2023 20:13:13 05/02/2005/02/2023 CBC/C OMPLE TE BLD COUNT W/DIF F neutrophils, absolute count 4.85 x10'3 /uL 1.5-8. 0 Not Available [facility] (Lab) [address] [place], [address], 05/02/2023 20:13:13 05/02/2005/02/2023 CBC/C OMPLE TE BLD COUNT W/DIF F lymphocytes, absolute count 1.07 x10'3 /uL 1.07-3 .43 Not Available [facility] (Lab) [address] [place], [address], 05/02/2023 20:13:13 05/02/2005/02/2023 CBC/C OMPLE TE BLD COUNT W/DIF F monocytes, absolute count 0.47 x10'3 /uL 0.29-0 .99 Not Available [facility] (Lab) [address] [place], [address], 05/02/2023 20:13:13 05/02/2005/02/2023 CBC/C OMPLE TE BLD COUNT W/DIF F eosinophils, absolute count 0.57 x10'3 /uL 0.02-0 .53 high Not Available [facility] (Lab) [address] [place], [address], 05/02/2023 20:13:13 05/02/2005/02/2023 CBC/C OMPLE TE BLD COUNT W/DIF F basophils, absolute count 0.06 x10'3 /uL 0.01-0 .08 Not Available [facility] (Lab) [address] [place], [address], 05/02/2023 20:13:13 05/02/2005/02/2023 CBC/C OMPLE TE BLD COUNT W/DIF F immature granulocytes ,absolute 0.02 x10'3 /uL 0.00-0 .05 Not Available [facility] (Lab) [address] [place], [address], 05/02/2023 20:13:13 05/02/2005/02/2023 CBC/C OMPLE TE BLD COUNT W/DIF F nucleated red blood cells 0.0 % -0 Not Available [facility] (Lab) [address] [place], [address], 05/02/2023 20:13:13 05/02/2005/02/2023 CBC/C OMPLE TE BLD COUNT W/DIF F NRBC# 0.00 x10'3 /uL Not Available [facility] (Lab) [address] [place], [address], 05/02/2023 20:13:13 05/02/2005/02/2023 T4 FREE free T4 1.16 NG/dL 0.78-2 .19 Not Available [facility] (Lab) [address] [place], [address], 05/02/2023 20:17:07 05/02/20 23 05/02/2023 BASIC METAB OLIC PANEL sodium 139 mmol/ L 137-14 5 Not Available [facility] (Lab) [address] [place], [address], 05/02/2023 20:19:20 05/02/2005/02/2023 BASIC METAB OLIC PANEL potassium 4.2 mmol/ L 3.5-5. 1 Not Available [facility] (Lab) [address] [place], [address], 05/02/2023 20:19:20 05/02/2005/02/2023 BASIC METAB OLIC PANEL chloride 108 mmol/ L 98-107 high Not Available [facility] (Lab) [address] [place], [address], 05/02/2023 20:19:20 05/02/20 23 05/02/2023 BASIC METAB OLIC PANEL carbon dioxide 24 mmol/ L 22-30 Not Available [facility] (Lab) [address] [place], [address], 05/02/2023 20:19:20 05/02/2005/02/2023 BASIC METAB OLIC PANEL anion gap 11.2 mmol/ L 14-22 low Not Available [facility] (Lab) [address] [place], [address], 05/02/2023 20:19:20 05/02/2005/02/2023 BASIC METAB OLIC PANEL glucose 110 mg/dL 70-99 high Not Available [facility] (Lab) [address] [place], [address], 05/02/2023 20:19:20 05/02/20 23 05/02/2023 BASIC METAB OLIC PANEL BUN 17 mg/dL 8-19 Not Available [facility] (Lab) [address] [place], [address], 05/02/2023 20:19:20 05/02/20 23 05/02/2023 BASIC METAB OLIC PANEL creatinine 1.24 mg/dL 0.66-1 .25 Not Available [facility] (Lab) [address] [place], [address], 05/02/2023 20:19:20 05/02/2005/02/2023 BASIC METAB OLIC PANEL GFR 57 Refer ence Range : [employer] ge GFR Healt hy Adult : >60 mL/mi n/1.7 3 m2 Chron ic Kidne y Disea se: 15-60 mL/mi n/1.7 3 m2 Kidne y Failu re: <15/m L/min /1.73 m2 www.n iddk. nih.g ov The MDRD study equat ion has not been valid ated in child kd <18 years of age; pregn ant women ; the elder ly >85 years of age; or in some racia l or ethni c subgr oups, such as [facility] nics. Outsi de the valid ated sariah eters , estim ated GFR is less accur ate, requi ring clini darrell judgm ent on a case- by-ca se basis . Clini darrell inter preta tion for other races and ages must be made by the clini ezra. The MDRD study equat ion has not been valid ated for the evalu ation of serum creat inine relat ed to nutri sonja l statu s or medic ation usage . For perso ns <18 years of age, a pedia tric GFR calcu lator is avail able on the F websi te: https ://mainor w.anjelica rodriguez.o rg/pr ofess ional s/kdo qi/gf r_cal culat or Not Available [facility] (Lab) [address] [place], [address], 05/02/2023 20:19:20 05/02/2005/02/2023 BASIC METAB OLIC PANEL calcium 9.5 mg/dL 8.4-10 .2 Not Available [facility] (Lab) [address] [place], [address], 05/02/2023 20:19:20 05/02/2005/02/2023 URIC ACID SERUM uric acid 5.2 mg/dL 3.5-8. 5 Not Available [facility] (Lab) [address] [place], [address], 05/02/2023 20:19:25 05/02/2005/02/2023 LIPID PANEL cholesterol 115 mg/dL 140-19 9 low NIH SHADIA NSUS RECOM MENDA TION FOR CARLIN STERO L: ADULT CHILD LOW RISK: <200 <170 BORDE RLINE : <200- 239 ----- HIGH RISK: >240 >200 Not Available [facility] (Lab) [address] [place], [address], 05/02/2023 20:19:30 05/02/2005/02/2023 LIPID PANEL triglyceride s 163 mg/dL 0-150 high NIH SHADIA NSUS REPOR T RECOM MENDA TION FOR TRIGL YCERI BONNIE: ADULT CHILD LOW RISK: <150 ----- BODER LINE: 150-1 99 ----- HIGH RISK: >200 ----- Not Available [facility] (Lab) [address] [place], [address], 05/02/2023 20:19:30 05/02/2005/02/2023 LIPID PANEL HDL cholesterol 29 mg/dL 40- low Not Available [facility] (Lab) [address] [place], [address], 05/02/2023 20:19:30 05/02/2005/02/2023 LIPID PANEL LDL cholesterol, calculated 53 mg/dL 0-130 NIH SHADIA NSUS REPOR T RECOM MENDA TIONS FOR LDL: ADULT CHILD LOW RISK <130 <110 (OPTI MAL LDL) <100 ----- BORDE RLINE : 130-1 59 ----- HIGH RISK: >160 >130 A TRIGL YCERI DE RESUL T >400 INVAL IDATE S THE CALCU LATIO N FOR LDL FRACT IONAT ION - THE LDL RESUL T WILL NOT BE REPOR LUIS. Not Available [facility] (Lab) [address] [place], [address], 05/02/2023 20:19:30 05/02/2005/02/2023 HEPAT IC/LI REGULO PANEL alkaline phosphatase 89 U/L 38-126 Not Available [facility] (Lab) [address] [place], [address], 05/02/2023 20:19:47 05/02/2005/02/2023 HEPAT IC/LI REGULO PANEL alanine aminotransfe rase 23 U/L 0-50 Not Available [facility] (Lab) [address] [place], [address], 05/02/2023 20:19:47 05/02/2005/02/2023 HEPAT IC/LI REGULO PANEL aspartate aminotransfe rase 26 U/L 15-46 Not Available [facility] (Lab) [address] [place], [address], 05/02/2023 20:19:47 05/02/2005/02/2023 HEPAT IC/LI REGULO PANEL bilirubin, total 1.90 mg/dL 0.20-1 .30 high Not Available [facility] (Lab) [address] [place], [address], 05/02/2023 20:19:47 05/02/2005/02/2023 HEPAT IC/LI REGULO PANEL bilirubin, conjugated (direct) 0.00 mg/dL 0.00-0 .30 Not Available [facility] (Lab) [address] [place], [address], 05/02/2023 20:19:47 05/02/2005/02/2023 HEPAT IC/LI REGULO PANEL biliurubin,u ncong. (indirect) 1.50 mg/dL 0.00-1 .1 high Not Available [facility] (Lab) [address] [place], [address], 05/02/2023 20:19:47 05/02/2005/02/2023 HEPAT IC/LI REGULO PANEL total protein 7.9 g/dL 6.3-8. 2 Not Available [facility] (Lab) [address] [place], [address], 05/02/2023 20:19:47 05/02/2005/02/2023 HEPAT IC/LI REGULO PANEL albumin 4.3 g/dL 3.0-4. 4 Not Available [facility] (Lab) [address] [place], [address], 05/02/2023 20:19:47 05/02/2005/02/2023 HEPAT IC/LI REGULO PANEL globulin 3.6 g/dL 2.6-4. 2 Not Available [facility] (Lab) [address] [place], [address], 05/02/2023 20:19:47 05/02/2005/02/2023 HEPAT IC/LI REGULO PANEL A/G ratio 1.2 ratio 1.0-2. 0 Not Available [facility] (Lab) [address] [place], [address], 05/02/2023 20:19:47 05/02/2005/02/2023 TSH thyroid-stim ulating hormone 3.360 uIU/m L 0.465- 4.680 Not Available [facility] (Lab) [address] [place], [address], 05/02/2023 20:33:38 05/02/20 23 05/02/2023 PSA SCREE N PSA medicare screen 8.21 NG/mL 0.00-4 .00 high Not Available [facility] (Lab) [address], [place], [address], 05/02/2023 20:33:54 03/14/20 22 03/13/2022 , [facility] ardio gram No observ ation record ed. [id number] [facility] [address], [place], [address], 09/05/2022 21:12:48 Result Notes None recorded. Problems Name Problem SNOMED Code Status Onset Date Resolution Date Notes Provider Name and Address Organization Details Recorded Time Hypothyroidis m 64276869 Active 2018 Not Available [facility] 3 21:11:58 Cardiac pacemaker in situ 946089038 Active 2018 Not Available [facility] 3 21:11:58 Coronary arteriosclero sis 65830052 Active 2018 Not Available [facility] 3 21:11:58 Hyperlipidemi a 67714196 Active 2018 Not Available [facility] 3 21:11:58 Essential hypertension 55158099 Active 2018 Not Available [facility] 3 21:11:58 Gout 40276356 Active 2018 Not Available [facility] 3 21:11:59 Prostate specific antigen above reference range 304221605 Active 2022 Tanya Cortez MD [address], [place], [address] , [facility] 3 10:37:08 Problem Notes None recorded. Procedures Surgical History Date Name Laterality Status Provider Name and Address Organization Details Recorded Time Medicare Wellness CPT Code, subsequent completed Renae Mariee RN [facility] 05/02/2023 10:20:36 Imaging Results Imaging Date Name Status LastModified by Organization Details LastModified Time 03/13/2022 US, echocardiogram completed [id number] [facility] [address], [place], [address], 09/05/2022 21:12:48 Procedure Notes None recorded. Medical Equipment None Reported. Allergies Allergen ID Allergen Name Allergen Category Reaction Reaction Severity Criticality Documentation Date Start Date Code Code System Note Provider Name and Address Organization Details Recorded Time 71362 Substance with sulfonami de structure and antibacte rial mechanism of action (substanc e) medicatio n rash moderate Not available 09/05/2022 [id number] SNOMED [facility] Available [facility] 21:12:46 Medications Name Sig Start Date Stop Date Status Note LastModified by Organization Details LastModified Time furosemide 40 mg tablet 03/25 completed Not Available Not Available Not Available metoprolol succinate ER 50 mg tablet,extend ed release 24 hr 1 po qday 03/16 completed Not Available Not Available Not Available lisinopril 20 mg tablet 1 po qday 03/16 completed Not Available Not Available Not Available ondansetron HCl 4 mg tablet 03/25 completed Not Available Not Available Not Available metoprolol succinate ER 100 mg tablet,extend ed release 24 hr TAKE 1 TABLET BY MOUTH EVERY DAY active Not Available Not Available No t Available clopidogrel 75 mg tablet 1 po qday 03/16 completed Not Available Not Available Not Available allopurinol 100 mg tablet active Not Available Not Availabl e Not Available aspirin 81 mg tablet,delaye d release Take 1 tablet every day by oral route. 2018 active Not Available Not Available Not Avai lable spironolacton e 25 mg tablet 03/25 completed Not Available Not Available Not Available simvastatin 40 mg tablet 1 po qhs 09/20 completed Not Available Not Available Not Available levothyroxine 75 mcg tablet TAKE 1 TABLET BY MOUTH EVERY DAY active Not Available Not Available No t Available levothyroxine 100 mcg tablet TAKE 1 TABLET BY MOUTH EVERY DAY 06/19 completed Not Available Not Available Not Available oxycodone-erwin taminophen 5 mg-325 mg tablet 03/25 completed Not Available Not Available Not Available levothyroxine 88 mcg tablet TAKE 1 TABLET BY MOUTH EVERY DAY 03/07/ 2024 active Not Available Not Available Not Avai lable alprazolam 0.25 mg tablet 03/25 completed Not Available Not Available Not Available magnesium oxide 400 mg (241.3 mg magnesium) tablet TAKE 1 TABLET BY MOUTH TWICE A DAY FOR 1 WEEK, THEN TAKE 1 TABLET ONCE A DAY UNTIL GONE. 03/16 completed Not Available Not Available Not Available levothyroxine 50 mcg tablet 03/25 completed Not Available Not Available Not Available cephalexin 500 mg capsule 03/25 completed Not Available Not Available Not Available lisinopril 10 mg tablet 03/25 completed Not Available Not Available Not Available metoprolol succinate ER 25 mg tablet,extend ed release 24 hr 03/25 completed Not Available Not Available Not Available lisinopril 40 mg tablet TAKE 1 TABLET BY MOUTH EVERY DAY active Not Available Not Available No t Available rosuvastatin 20 mg tablet TAKE 1 TABLET BY MOUTH EVERY DAY active Not Available Not Available No t Available amlodipine 5 mg-valsartan 160 mg tablet TAKE 1 TABLET BY MOUTH EVERY DAY active Not Available Not Available No t Available cefixime 400 mg capsule TAKE 1 TABLET BY MOUTH ONCE DAILY 03/20 completed Not Available Not Available Not Available Vitals Date Recorded Body mass index (BMI) Body height Oxygen saturation Oxygen saturation in Arterial blood by Pulse oximetry Heart rate Body temperature Body weight Systolic blood pressure Diastolic blood pressure Provider Name and Address Organization Details Last Updated DateTime 2 28.2 kg/m2 175.26 cm 97 % 97 % 72 /min 97.2 [degF] 44277.1 4 g 118 mm[Hg] 62 mm[Hg] Not Available [facility] 3 21:11:46 Date Recorded Body mass index (BMI) Body height Oxygen saturation Oxygen saturation in Arterial blood by Pulse oximetry Heart rate Body temperature Body weight Systolic blood pressure Diastolic blood pressure Provider Name and Address Organization Details Last Updated DateTime 2 28.8 kg/m2 175.26 cm 98 % 98 % 80 /min 97.5 [degF] 29201.5 1 g 129 mm[Hg] 64 mm[Hg] Not Available [facility] 3 21:11:46 Date Recorded Body height Body mass index (BMI) Body weight Body temperature Oxygen saturation Oxygen saturation in Arterial blood by Pulse oximetry Heart rate Systolic blood pressure Diastolic blood pressure Provider Name and Address Organization Details Last Updated DateTime 3 175.26 cm 28.9 kg/m2 35516.1 g 98.4 [degF] 96 % 96 % 80 /min 140 mm[Hg] 80 mm[Hg] Julienne Thomas CMA [facility] [email or web address] [facility] 3 08:50:55 Date Recorded Systolic blood pressure Diastolic blood pressure Provider Name and Address Organization Details Last Updated DateTime 11/06/2022 138 mm[Hg] 84 mm[Hg] ZEESHAN Vela [address], [place], [address] [employer] [facility] 11/06/2022 09:19:56 Date Recorded Body height Body mass index (BMI) Body weight Body temperature Heart rate Oxygen saturation Oxygen saturation in Arterial blood by Pulse oximetry Systolic blood pressure Diastolic blood pressure Provider Name and Address Organization Details Last Updated DateTime 3 175.26 cm 28.8 kg/m2 86591.5 1 g 97 [degF] 80 /min 97 % 97 % 164 mm[Hg] 88 mm[Hg] Renae Mariee RN [facility] [employer] [facility] 3 09:51:49 Date Recorded Body height Body mass index (BMI) Body weight Body temperature Heart rate Oxygen saturation Oxygen saturation in Arterial blood by Pulse oximetry Provider Name and Address Organization Details Last Updated DateTime 3 175.26 cm 28.5 kg/m2 52540.3 3 g 97.2 [degF] 82 /min 97 % 97 % Renae Mariee RN [facility] [email or web address] [facility] 3 10:22:43 Date Recorded Systolic blood pressure Diastolic blood pressure Provider Name and Address Organization Details Last Updated DateTime 05/02/2023 138 mm[Hg] 78 mm[Hg] Tanya Cortez MD [address], [place], [address] [email or web address] [facility] 05/02/2023 10:34:12 Social History Question Answer Notes LastModified by Organizat ion Details LastModified Time Tobacco Smoking Status Never Smoker Not Available [facility] 09/05/2022 21:11:27 Do You Have An Advance Directive? No [id number] Information not available 09/05/2022 What Is Your Level Of Alcohol Consumption? Occasional [id number] Information not available 09/05/2022 Do You Wear A Helmet When Biking? Yes [id number] Information not available 09/05/2022 Are You Blind Or Do You Have Difficulty Seeing? No [id number] Information not available 09/05/2022 What Is Your Level Of Caffeine Consumption? Moderate [id number] Information not available 09/05/2022 In The 14 Days Before Symptom Onset, Have You Had Close Contact With A Laboratory-confirm ed COVID-19 While That Case Was Ill? No [id number] Information not available 09/05/2022 In The 14 Days Before Symptom Onset, Have You Had Close Contact With A Person Who Is Under Investigation For COVID-19 While That Person Was Ill? No [id number] Information not available 09/05/2022 Are You Deaf Or Do You Have Serious Difficulty Hearing? No [id number] Information not available 09/05/2022 What Type Of Diet Are You Following? REGULAR [id number] Information not available 09/05/2022 Have There Been Any Changes To Your Family Or Social Situation? No [id number] Information not available 09/05/2022 What Is The Fluoride Status Of Your Home? Unknown MIGRATION.[id number] Information not available 09/05/2022 Are There Any Guns Present In Your Home? No MIGRATION.893825 6607 Information not available 09/05/2022 Do You Use Insect Repellent Routinely? No MIGRATION.641671 8371 Information not available 09/05/2022 Advance Directive- Providers Has Reviewed Directive And Consents To Follow Them (insert Provider Name With Any Objectives In Notes Field) No MIGRATION.320184 3972 Information not available 09/05/2022 Do You Have A Medical Power Of Brancher? No MIGRATION.761316 8972 Information not available 09/05/2022 What Was The Date Of Your Most Recent Tobacco Screening? 05/02/2023 Information not available 05/02/2023 Have You Ever Been Counseled For Unhealthy Alcohol Use? No MIGRATION.291710 2758 Information not available 09/05/2022 What Is Your Relationship Status? MIGRATION.805672 4199 Information not available 09/05/2022 Do You Use Your Seat Belt Or Car Seat Routinely? Yes MIGRATION.469141 7248 Information not available 09/05/2022 Do You Have Smoke And Carbon Monoxide Detectors In Your Home? Yes MIGRATION.920303 0438 Information not available 09/05/2022 Are You Passively Exposed To Smoke? No MIGRATION.327768 4624 Information not available 09/05/2022 Are There Any Smokers In Your House? No MIGRATION.141578 8444 Information not available 09/05/2022 Do You Participate In Social Media? No MIGRATION.785484 9814 Information not available 09/05/2022 Do You Use Any Illicit Or Recreational Drugs? No MIGRATION.270940 3163 Information not available 09/05/2022 Do You Use Sunscreen Routinely? No MIGRATION.026525 7720 Information not available 09/05/2022 Has Tobacco Cessation Counseling Been Provided? No MIGRATION.314573 0793 Information not available 09/05/2022 Have You Recently Traveled Abroad? No MIGRATION.083463 3066 Information not available 09/05/2022 Are You Currently In School? No MIGRATION.089692 2105 Information not available 09/05/2022 Do You Have Any Dietary Restrictions? No MIGRATION.248567 7962 Information not available 09/05/2022 Do You Or Have You Ever Used Any Other Forms Of Tobacco Or Nicotine? No MIGRATION.530323 7760 Information not available 09/05/2022 Sex: Male Functional Status Question Answer Note LastModified by [employer] Details LastModified Time Do you have difficulty walking or climbing stairs? No MIGRATION.4547921 026 Information not available 09/05/2022 Do you have transportation difficulties? No MIGRATION.5015397 026 Information not available 09/05/2022 Are you able to walk? YESWOREST MIGRATION.6764631 026 Information not available 09/05/2022 Do you have difficulty doing errands alone? No MIGRATION.2908072 026 Information not available 09/05/2022 Are you able to care for yourself? Yes MIGRATION.2393706 026 Information not available 09/05/2022 Do you have difficulty dressing or bathing? No MIGRATION.5300574 026 Information not available 09/05/2022 What is your exercise level? Occasional MIGRATION.0002053 026 Information not available 09/05/2022 Mental Status Question Answer Note LastModified by Organizat ion Details LastModified Time Do you have difficulty concentrating, remembering or making decisions? No MIGRATION.[id number] 6 Information not available 09/05/2022 Family History Nothing Reported Notes:Adopted Medical History No medical history recorded. Past Encounters Encounter ID Performer Location Encounter Start Date Encounter Closed Date Diagnosis/Indication Diagnosis SNOMED-CT Code Diagnosis ICD10 Code Diagnosis Note [id number] Tanya Cortez MD [facility] Primary Care [place] [address] [facility] [address] [place] [address] 03/20/2021 00:00:00 03/20/2021 09:23:25 [id number] Tanya Cortez MD [facility] Primary Care [place] [address] [facility] [address] [place] [address] 09/18/2021 00:00:00 09/18/2021 08:42:40 [id number] Tanya Cortez MD [facility] Primary Care [place] [address] [facility] [address] [place] [address] 03/20/2022 00:00:00 03/20/2022 10:50:01 [id number] Tanya Cortez MD [facility] Primary Care [place] [address] [facility] [address] [place] [address] 06/18/2022 00:00:00 06/18/2022 10:15:20 [id number] ZEESHAN Vela [facility] Primary Care [place] [address] [facility] [address] [place] [address] 11/06/2022 08:45:41 11/06/2022 09:19:36 Pre-surgery evaluation [id number] Z01.818 Cataract surgery scheduled 11/26/[address] Richards.Overa ll normal physical exam. Reviewed medication s and allergies. Pt. is considered low risk and can proceed with surgery if recommende d by surgeon.No concerns or complaints from patient. [id number] Tanya Cortez MD [facility] Primary Care [place] [address] [facility] [address] [place] [address] 12/17/2022 09:44:26 12/17/2022 10:23:17 Hypothyroidism 46265681 E03.9 currently on levothyrox ine 88 mcg dailyfeeli ng wellcheck tsh and free t4 Essential hypertension 52689904 I10 elevated today, but normal last month at his last visit and normal at visit with cardiology in [facility] monitor Gout 29765878 M10.9 Hyperlipidemia 97167204 E78.5 Z79.909 [id number] Tanya Cortez MD [facility] Primary Care [address] [place] [address] 05/02/2023 10:15:04 05/02/2023 10:46:16 Adult health examination 076435175 Z00.00 declines all vaccinesch sona labs and psano colon cancer screen needed Screening for disorder 490578123 Z13.9 Hypothyroidism 18766261 E03.9 currently on levothyrox ine 88 mcg dailyfeeli ng wellcheck tsh and free t4 Essential hypertension 24456616 I10 in good control Gout 85539793 M10.9 Hyperlipidemia 46341262 E78.5 Z79.899 Prostate s pecific antigen above reference range 300534639 R97.20 Health Concerns Section Related Observation LastModified by Organization Detai ls LastModified Time None Recorded Concern Status LastModified by Organization Details LastModified Time None Recorded Advance Directives Directive N: Payers Encounter Date Sequence Insurance Name Policy Number Policy Romero Covered Member ID Romero Member ID Guarantor Name 11/06/2022 1 [facility] (MEDICARE REPLACEMENT/A DVANTAGE - PPO) [id number] Lars Shirley [id number] Lars Shirley 12/17/2022 1 [facility] (MEDICARE REPLACEMENT/A DVANTAGE - PPO) [id number] Lars Shirley [id number] Lars Shirley 05/02/2023 1 [facility] (MEDICARE REPLACEMENT/A DVANTAGE - PPO) [id number] Lars Shirley [id number] Lars Shirley Notes Date Note Type Note Provider Name and Address Organization Details Recorded Time 11/06/2022 text/html Pt. is here for medical clearance. Scheduled 11/26/22.No new concerns or complaints. ZEESHAN Vela [address] [facility], [facility] [address], [place], [address], [facility] [employer] 11/06/2022 09:23:32 12/17/2022 text/html Here to f/u on hypothyroidism. Currently taking levothyroxine 88 mcg daily. He feels well, no chest pain, no sob. Tanya Cortez MD [address], [facility] [address], [place], [address], [employer] 12/17/2022 10:14:56 05/02/2023 text/html Here for wellnes s exam. Has seen Dr. Bolanos/Sonya Tony recently for cardiology. Feeling well, no chest pain or sob, stays active. Tanya Cortez MD [address], [facility] [address], [place], [address], [employer] 05/02/2023 10:43:34
--- OUTSIDE RECORDS SUMMARY | 2024-11-09 08:25 | XMS_ITS | Clinical Summary ---
Author Organization [facility] [address] Address [address] [place] [address] Care Team Providers Care Instrumentation Fitter Name Role Phone Leon Segura MD Unavailable [phone] Diogenes Gibson MD Primary Care Provider [phone] Allergies Active Allergy Reactions Criticality Noted Date Comments Sulfa (Sulfonamide Antibiotics) Hives,Rash Medium 12/06 Medications aspirin (ASPIRIN LOW DOSE) 81 mg tablet take 1 tablet (81MG) by oral route every day 0 08/04/2012 Active allopurinol (ZYLOPRIM) 100 mg tablet Take 1 tablet (100 mg total) by mouth daily. 30 tablet 02/07/2018 Active levothyroxine (SYNTHROID) 88 mcg tablet Take 1 tablet (88 mcg total) by mouth daily 09/12/2023 Active metoprolol XL (TOPROL-XL) 100 mg 24 hr tabletIndication s:Coronary artery disease involving [place] coronary artery of [place] heart without angina pectoris,Cardiom yopathy, ischemic Take 1 tablet (100 mg total) by mouth daily 90 tablet 3 02/17/2024 Active rosuvastatin (CRESTOR) 20 mg tabletIndication s:Coronary artery disease involving [place] coronary artery of [place] heart without angina pectoris Take 1 tablet (20 mg total) by mouth daily 90 tablet 3 02/17/2024 Active amlodipine-valsa rtan (EXFORGE) 5-320 mg per tablet Take 1 tablet by mouth daily 30 tablet 11 03/19/2024 5 Active Active Problems Problem Noted Date Diagnosed Date CKD (chronic kidney disease) stage 2, GFR 60-89 ml/min 02/22/2020 Nonrheumatic aortic (valve) insufficiency 2017 Cardiomyopathy, ischemic 05/12/2018 Hx of CABG 03/11/2018 Pacemaker 02/07/2018 Overview (05/24/2021): [employer] Dual Pacemaker. Dx; Second Degree HB. DOI 02/07/[address] Segura. Taz remote monitoring. BATTERY ADVISORY. Coronary artery disease invo lving [place] coronary artery of [place] heart without angina pectoris 01/29/2018 Overview (01/29/2018): Added automatically from request for surgery [id number] [place] (myocardial infarction) 11/07/2017 Essential hypertension, benign 11/07/2017 Anemia 11/07/2017 Multiple-type hyperlipidemia 11/21/2013 Overview (10/12/2016): MIXED HYPERLIPIDEMIA Presence of stent in coronary artery 08/10/2013 Overview (10/10/2016): H/O heart artery stent Adiposity 08/10/2013 Overview (10/12/2016): Obesity (BMI 30-39.9) History of second degree heart block 08/10/2013 Overview (10/12/2016): H/O syncope Resolved Problems Problem Noted Date Diagnosed Date Resolved Date Mitral valve insufficiency a nd aortic valve insufficiency 05/12/2018 05/12/2018 Nonrheumatic aortic insuffic iency with aortic stenosis 05/12/2018 05/12/2018 Coronary artery disease of n ative heart with stable angina pectoris ([facility]) 01/29/2018 021 Overview (02/06/2018): Added automatically from request for surgery [id number] Angina pectoris, unstable 11/07/2017 Progressive angina 09/10/2016 8 Overview (11/30/2016): Progressive angina Exercise-induced angina 08/03/201411/2017 Overview (10/11/2016): Angina effort Acute inferior myocardial infarction 11/21/2013 05/12/2018 Overview (10/10/2016): AMI INFERIOR WALL,SUBSEQ Chronic ischemic heart disease 11/21/2013 11/07/2017 Overview (10/12/2016): CHR ISCHEMIC HRT DIS NOS Atherosclerosis of coronary artery 11/21/2013 05/12/2018 Overview (10/12/2016): COR ATH UNSP VSL NTV/GFT Coronary arteriosclerosis in [place] artery 08/10/2013 05/12/2018 Overview (10/12/2016): CRNRY ATHRSCL NATVE VSSL Encounters Date Type Department Care Team Description 09/23/2024 10:00 AM CDT Ancillary Procedure [facility] Cardiology [address] [place] [address] Pacemaker (Primary Dx); Second degree AV block from Last 3 Months Surgical History Surgery Date Site/Laterality Comments OTHER SURGICAL HISTORY Age 8 yrs post hernia surgery cardiac arrest opn r: CORONARY ARTERY BYPASS GRAFT 07/08/2017 - 07/07/2018 SAINI to LAD, RA to OM, SVG to PDA, SVG fr RA to Diag. INSERT / REPLACE / REMOVE PACEMAKER 07/08/2017 - 07/07/2018 [employer]. Shahbaz's pacemaker for 2nd degree AVB Medical History Medical History Date Comments Hx Other Medical 2008 Kidney Stones, acute Right ereterovesical junction Hx Other Medical Age 8 yrs post hernia surgery cardiac arrest opn r Hyperlipidemia Coronary artery disease IMI and RCA stent 2008, NSTEMI and CABG 2018 Cardiac arrest (HCC) 8 y.o. 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, previously processed unemployment paperwork Not on file Not on file Not on file Obstetrics History Last Filed Vital Signs Vital Sign Reading Time Taken Comments Blood Pressure 130/68 08/11/2024 7:54 AM STIFF NECK LOADER Pulse 68 08/11/2024 7:54 AM STIFF NECK LOADER Temperature 36.6 C (97.9 F) 06/10/2018 11:47 AM STIFF NECK LOADER Respiratory Rate 16 06/10/2018 11:47 AM STIFF NECK LOADER Oxygen Saturation 96% 08/11/2024 7:54 AM STIFF NECK LOADER Inhaled Oxygen Concentration - - Weight 86.2 kg (190 lb) 08/11/2024 7:54 AM STIFF NECK LOADER Height 175.3 cm (5' 9 ) 08/11/2024 7:54 AM STIFF NECK LOADER Body Mass Index 28.06 08/11/2024 7:54 AM STIFF NECK LOADER Plan of Treatment Health Maintenance Due Date Last Done Comments Depression Screening 1945 Fall Risk Assessment 1945 Hepatitis C Screening 1945 Hepatitis B Screening 09/23/1963 Pneumococcal vaccine 65+ (1 of 1 - PCV) 09/23/1995 Zoster Vaccine (1 of 2) 09/23/1995 Well Visit 65+ 2010 Influenza Vaccine (Season Ended) 2025 DTaP/Tdap/Td Vaccine (2 - Td or Tdap) 08/18/202805/2019 Medical Devices Implanted Type Area Inspector Assemblies And Installations Device Identifier Shelf Expiration Date Model / Serial / Lot [employer] 2087tc/52 Tendril Sts 6fr 52cm Is-1 Connector Active Fixation Bipolar Soft - [id number] - [id number] Implanted:Qty : 1 on 02/07/2018 by Leon Segura MD at [facility] Lead N/A: Chest Wall [employer] 12/05/20208TC/52 / [id number] / [employer] 2087tc/46 Tendril Sts 6fr 46cm Is-1 Connector Bipolar Active Fixation - [id number] - [id number] Implanted:Qty : 1 on 02/07/2018 by Leon Segura MD at [facility] Lead N/A: Chest Wall [employer] 11/04/20202087TC/46 / [id number] / [employer] [id number] Assurity Mri [id number] 2 Chamber Is-1 Connector Thk6mm Pacemaker - [id number] - [id number] Implanted:Qty : 1 on 02/07/2018 by Leon Segura MD at [facility] Pacemaker N/A: Chest Wall [employer] 07/07/2019 [id number] / [id number] / Procedures Procedure Name Priority Date/Time Associated Diagnosis Comments DEVICE CHECK - IN OFFICE Routine 09/23/2024 9:45 AM CDT Second degree AV block from Last 3 Months Results * DEVICE CHECK - IN OFFICE (09/23/2024 9:45 AM CDT) Anatomical Region Laterality Modality Other Narrative 09/23/2024 4:01 PM CDT Meyer Assurity Dual Pacemaker. Dx; Second Degree HB. DOI 02/07/[address] Segura. Hope remote monitoring. Battery Advisory. Supervising MD: Dr Ken. Office DDD Pacemaker evaluation demonstrated appropriate device function. Left pectoral incision well healed without signs of infection noted. Battery function-2.95V, 3.0-3.5 years remaining battery life to ALEX. Appropriate lead measurements noted. Presenting rhythm-ASVS (SR) with First Degree AVB. AP-13%, INVESTMENT EXECUTIVE-58%. 4 mode switch episodes recorded, <1 minute max duration, iegm's oversensing noise. No ventricular high rate episodes noted. Atrial amplitude decreased to 1.0V. See scanned report. Hope remote f/u 12/29/2024. Office pacemaker f/u scheduled 12/22/2025. Joellen Craven, RN Jacki Bolanos MD [facility] PROCEDU RES Final Result from Last 3 Months Insurance [facility] Address: [address] [address] [place] [address] MEDICARE AD[facility]ANTAGE [facility] Address: [address] [place], [place] [address] MEDICARE [facility] Address: [address] [address] [place] [address] Advance Directives For more information, please contact: [phone] * Full Code (Latest Code Status on File) Date Activated Date Inactivated Comments 02/08/2018 1:53 PM 02/11/2018 5:40 PM * Full Code Date Activated Date Inactivated Comments 01/30/2018 3:21 PM 02/07/2018 8:09 PM * Full Code Date Activated Date Inactivated Comments 01/29/2018 3:56 PM 01/30/2018 3:21 PM Care Teams Instrumentation Fitter Relationship Specialty Start Date End Date Diogenes Gibson MD [employer] [place] [address] PCP - General Family Medicine 02/17/24 Leon Segura MD Surgeon Cardiothoracic Surgery 02/07/18
--- OUTSIDE RECORDS SUMMARY | 2024-11-09 08:25 | XMS_ITS | Referral Summary ---
Author Organization [facility] [address] [facility] [address] Address [address] [place] [address] Care Team Providers Care Correctional Corporal Name Role Phone Leon Segura MD Unavailable [phone] Diogenes Gibson MD Primary Care Provider [phone] Encounters Date Type Department Care Team Description 09/23/2024 10:00 AM CDT Ancillary Procedure [facility] Medical [facility] Cardiology [address] [facility] [address] [place] [address] Pacemaker (Primary Dx); Second degree AV block from Last 3 Months Allergies Active Allergy Reactions Criticality Noted Date [...] 24 hr tabletIndication s:Coronary artery disease involving [place] coronary artery of [place] heart without angina pectoris,Cardiom yopathy, ischemic Take 1 tablet (100 mg total) by mouth daily 90 tablet 3 02/17/2024 Active rosuvastatin (CRESTOR) 20 mg tabletIndication s:Coronary artery disease involving [place] coronary artery of [place] heart without angina pectoris Take 1 tablet [...] BATTERY ADVISORY. Coronary artery disease invo lving [place] coronary artery of [place] heart without angina pectoris 01/29/2018 Overview (01/29/2018): Added automatically from request for surgery [id number] [place] (myocardial infarction) 11/07/2017 Essential hypertension, benign 11/07/2017 [...] n ative heart with stable angina pectoris ([facility]) 01/29/2018 021 Overview (02/06/2018): Added automatically from request for surgery [id number] Angina pectoris, unstable 11/07/2017 Progressive angina 09/10/2016 8 Overview (11/30/2016): Progressive angina Exercise-induced angina 08/03/201411/2017 Overview (10/11/2016): Angina effort Acute inferior myocardial infarction 11/21/2013 05/12/2018 Overview (10/10/2016): AMI INFERIOR WALL,SUBSEQ Chronic ischemic heart disease 11/21/2013 11/07/2017 Overview (10/12/2016): CHR ISCHEMIC HRT DIS NOS Atherosclerosis of coronary artery 11/21/2013 05/12/2018 Overview (10/12/2016): COR ATH UNSP VSL NTV/GFT Coronary arteriosclerosis in [place] artery 08/10/2013 05/12/2018 Overview (10/12/2016): CRNRY ATHRSCL NATVE VSSL Social History Tobacco Use Types Packs/Day Years Used Date Smoking Tobacco: Never Smokeless Tobacco: Never Tobacco Cessation:Counseling Given: Not Answered Alcohol Use Standard Drinks/Week Comments No 0 (1 standard drink = 0.6 oz pur e alcohol) Sex and Gender Information Value Date Recorded Sex Assigned at Not on file Legal Sex Male 9:45 AM CARE TRANSITION COORDINATOR Gender Identity Not on file Sexual Orientation Not on file Occupation Industry Job Start Date Job End Date 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, previously processed unemployment paperwork Not on file Not on file Not on file Last Filed Vital Signs Vital Sign Reading Time Taken Comments Blood Pressure 130/68 08/11/2024 7:54 AM CARE TRANSITION COORDINATOR Pulse 68 08/11/2024 7:54 AM CARE TRANSITION COORDINATOR Temperature 36.6 C (97.9 F) 06/10/2018 11:47 AM CARE TRANSITION COORDINATOR Respiratory Rate 16 06/10/2018 11:47 AM CARE TRANSITION COORDINATOR Oxygen Saturation 96% 08/11/2024 7:54 AM CARE TRANSITION COORDINATOR Inhaled Oxygen Concentration - - Weight 86.2 kg (190 lb) 08/11/2024 7:54 AM CARE TRANSITION COORDINATOR Height 175.3 cm (5' 9 ) 08/11/2024 7:54 AM CARE TRANSITION COORDINATOR Body Mass Index 28.06 08/11/2024 7:54 AM CARE TRANSITION COORDINATOR Plan of Treatment Not on file Medical Devices Implanted Type Area Experiential Therapist Device Identifier Shelf Expiration Date Model / Serial / Lot [employer] 8tc/52 Tendril Sts 6fr 52cm Is-1 Connector Active Fixation Bipolar Soft - [id number] - [id number] Implanted:Qty : 1 on 02/07/2018 by Leon Segura MD at [facility] Lead N/A: Chest Wall [employer] 12/05/20208TC/52 / [id number] / [employer] 8tc/46 Tendril Sts 6fr 46cm Is-1 Connector Bipolar Active Fixation - [id number] - [id number] Implanted:Qty : 1 on 02/07/2018 by Leon Segura MD at [facility] Lead N/A: Chest Wall [employer] 11/04/20208TC/46 / [id number] / [employer] [id number] Assurity Mri [id number] 2 Chamber Is-1 Connector Thk6mm Pacemaker - [id number] - [id number] Implanted:Qty : 1 on 02/07/2018 by Leon Segura MD at [facility] Pacemaker N/A: Chest Wall [employer] 07/07/2019 [id number] / [id number] / Procedures Procedure Name Priority Date/Time Associated [...] 02/07/[address] Segura. Taz remote monitoring. Battery Advisory. Supervising MD: Dr Ken. Office DDD Pacemaker evaluation demonstrated appropriate device function. Left pectoral incision well healed without signs of infection noted. Battery function-2.95V, 3.0-3.5 years remaining battery life to ALEX. Appropriate lead measurements noted. Presenting rhythm-ASVS (SR) with First Degree AVB. AP-13%, DIE MOUNTER-58%. 4 mode switch episodes recorded, <1 minute max duration, iegm's oversensing noise. No ventricular high rate episodes noted. Atrial amplitude decreased to 1.0V. See scanned report. Taz remote f/u 12/29/2024. Office pacemaker f/u scheduled 12/22/2025. Joellen Craven RN us Jacki Bolanos MD [facility] CARDIAC SERVICES PROCEDU RES Final Result from Last 3 Months Insurance [employer] [facility] Address: [address] [address] [facility] MEDICARE [facility]ICARE Address: [facility] [address] [place] [address] [facility] MEDICARE [facility] Address: [address] [address] [place] [address] Advance Directives For more information, please contact: [phone] * Full Code (Latest Code Status on File) Date Activated Date Inactivated Comments 02/08/2018 1:53 PM 02/11/2018 5:40 PM * Full Code Date Activated Date Inactivated Comments 01/30/2018 3:21 PM 02/07/2018 8:09 PM * Full Code Date Activated Date Inactivated Comments 01/29/2018 3:56 PM 01/30/2018 3:21 PM Care Teams Correctional Corporal Relationship Specialty Start Date End Date Diogenes Gibson MD [facility] [place] [address] PCP - General Family Medicine 02/17/24 Leon Segura MD Surgeon Cardiothoracic Surgery 02/07/18
--- OUTSIDE RECORDS SUMMARY | 2024-11-09 08:25 | XMS_ITS | Encounter Summary ---
Author Organization [facility] Address [address] [place] [address] Care Team Providers Care Aircraft Ordnance Systems Mechanic Name Role Phone Diogenes Gibson MD Primary Care Provider [phone] Diogenes Gibson MD Primary Care Provider [phone] Leon Segura MD Unavailable [phone] Jacki Bolanos MD Unavailable [phone] Tanya Cortez MD Primary Care Provider + Diogenes Gibson MD Primary Care Provider [phone] Encounter Details Date Type Department Care Team (Late st Contact Info) Description 09/10/2016 Orders Only [facility] ProviderDarrell MD [address] [place] [id number] Social History Tobacco Use Types Packs/Day Years Used Date Smoking Tobacco: Never Alcohol Use Standard Drinks/Week Comments No 0 (1 standard drink = 0.6 oz pur e alcohol) Sex and Gender Information Value Date Recorded Sex Assigned at Not on file Legal Sex Male 9:45 AM [employer] Gender Identity Not on file Sexual Orientation Not on file documented as of this encounter Plan of Treatment Not on file documented as of this encounter Procedures Procedure Name Priority Date/Time Associated Diagnosis Comments CARDIOLOGY REPORT 09/10/2016 documented in this encounter Results * CARDIOLOGY REPORT (09/10/2016) Anatomical Region Laterality Modality Other Narrative 09/10/2016 Ordered by an unspecified provider. Historical Provider CV CARDIAC LEANDRA REGALADO Final Result documented in this encounter Visit Diagnoses Not on filedocumented in this encounter Care Teams Aircraft Ordnance Systems Mechanic Relationship Specialty Start Date End Date Diogenes Gibson MD [address] [place] [address] PCP - General 10/05/16 03/17/19 [place] [address] [place] [address] PCP - General 08/04/12 10/04/16 Tanya Cortez MD [address] [place] [id number] PCP - General Family Medicine 03/18/19 02/16/24 [place] [address] [place] [id number] PCP - General Family Medicine 02/17/24 Leon Segura MD [address] [place] [id number] Surgeon Cardiothoracic Surgery 02/07/18 [place] [address] [place] [id number] Consulting Physician Cardiology 02/07/18 02/16/24 documented as of this encounter
[2024-11-09 08:44] LABS: Basophils Absolute Auto 0.1 K/mm3 (0.0-0.1); Basophils Percent Auto 0.7 % (0.2-1.2); Eosinophils Absolute Auto 0.5 K/mm3 (0-0.3); Eosinophils Percent Auto 6.9 % (0-4.4); Hematocrit 44.5 % (42.0-52.0); Hemoglobin 14.3 g/dL (14.0-18.0); Immature Granulocyte Absolute 0.01 K/mm3 (0.00-0.031); Immature Granulocyte Percent A 0.1 % (0-0.5); Lymphocytes Absolute Auto 1.13 K/mm3 (0.9-3.2); Lymphocytes Percent Auto 16.3 % (18.3-44.2); Mean Corpuscular HGB Conc 32.1 g/dl (32-36); Mean Corpuscular Hemoglobin 30.1 pg (26-34); Mean Corpuscular Volume 93.7 fl (80-100); Mean Platelet Volume 10.1 fl (7.4-10.4); Monocytes Absolute Auto 0.5 K/mm3 (0.1-0.6); Monocytes Percent Auto 6.8 % (2.6-8.5); Neutrophils Absolute Auto 4.8 K/mm3 (1.3-6.7); Neutrophils Percent Auto 69.2 % (45.5-73.1); Platelet Count Result 184 k/mm3 (150-375); Red Blood Count 4.75 M/mm3 (4.6-6.20); Red Cell Distribution Width 13.8 % (11.5-14.5); White Blood Count 6.9 K/mm3 (4.5-10.0)
[2024-11-09 08:55] LABS: Alanine Aminotransferase 23 U/L (6-50); Albumin Level 4.3 g/dL (3.5-5.1); Alkaline Phosphatase 97 U/L (38-126); Anion Gap 6 mmol/L (4-12); Aspartate Amino Transferase 27 U/L (17-59); Bilirubin,Total 1.9 mg/dL (0.2-1.3); Blood Urea Nitrogen 21 mg/dL (9-20); Carbon Dioxide 29 mmol/L (22-30); Chloride 105 mmol/L (98-107); Cholesterol 106 mg/dL (0-200); Estimated Glomerular Filt Rate 58; Glucose 107 mg/dL (65-110); HDL Direct 30 mg/dL; Potassium 4.1 mmol/L (3.4-5.0); Sodium 140 mmol/L (137-145); Triglycerides 121 mg/dL (<150)
[2024-11-09 09:06] LABS: LDL Cholesterol Direct 45 mg/dL
[2024-11-09 09:25] LABS: Prostate Specific Antigen 11.8 ng/mL (< OR = 4.0)
== END 2024-11-09 08:14 | disposition home or self-care (01) ==
PROVIDERS: PCP Family Medicine; Referring Provider Internal Medicine Cardiovascular Disease; Visit Provider Family Medicine
DX: I10 Essential (primary) hypertension (principal); I63.50 Cerebral infarction due to unspecified occlusion or stenosis of unspecified cerebral artery; I25.10 Atherosclerotic heart disease of native coronary artery without angina pectoris; K21.9 Gastro-esophageal reflux disease without esophagitis; M10.9 Gout, unspecified; R73.9 Hyperglycemia, unspecified; R97.20 Elevated prostate specific antigen [PSA]; I11.0 Hypertensive heart disease with heart failure
CPT/HCPCS: 36415; 80053; 80061; 84153; 84443; 85025

== ENCOUNTER 2025-05-25 07:11 | Emergency (ER) | payer MEDICARE, SELFPAY ==
--- NOTE | ~2025-05-25 | CT_ITS ---
CT ABDOMEN AND PELVIS WITHOUT CONTRAST Clinical History: Right flank pain, hematuria Comparison: None Technique: Unenhanced axial images lung bases to symphysis pubis Coronal, sagittal reformats CT images acquired with automatic exposure control for dose reduction DLP: 473 mGy-cm Findings: Without intravenous contrast, sensitivity for detecting visceral parenchymal abnormalities decreased. Lung bases: Elevated left hemidiaphragm. Atelectasis and/or scarring Visualized heart and pericardium: Cardiomegaly. Liver: Unremarkable. Gallbladder: Stones. Spleen: Unremarkable. Pancreas: Unremarkable. Adrenal glands: Unremarkable. Kidneys: Right kidney- Hydronephrosis. A few stones, largest 5 mm. A few cysts. 6 mm stone distal ureter. Left kidney- No hydronephrosis. Several stones, largest 5 mm. Prominent cortical cyst. Tandem stones distal ureter, the larger 7 mm. Distal esophagus/stomach: Small hiatal hernia. Small bowel loops: Normal caliber and wall thickness. Colon: Diverticula. Normal caliber and wall thickness. Normal RLQ appendix. Nodes: No enlarged nodes. Peritoneum: No ascites. No free intraperitoneal air. Urinary bladder: Wall thickening. Prostate: Markedly enlarged. Bones: No acute bony abnormality. Soft tissues: Unremarkable. Unopacified abdominal aorta: No aneurysmal dilatation. Atherosclerotic disease. IMPRESSION: 1. Hydronephrosis right kidney due to 6 mm stone distal ureter. 2. Tandem stones distal left ureter but no hydronephrosis. 3. Bilateral renal stones. 4. Severe prostatomegaly. 5. Additional findings as above. Reviewed, dictated and finalized at location R. [facility] [employer]ELOPER
[2025-05-25 07:40] VITALS: BP 135/78; PULSE 79; RESP 18; O2SAT 97
[2025-05-25 07:40] LABS: Hematocrit 43.3 % (42.0-52.0); Hemoglobin 14.3 g/dL (14.0-18.0); Immature Granulocyte Percent A 0.5 % (0-0.5); Lymphocytes Absolute Auto 1.07 K/mm3 (0.9-3.2); Mean Corpuscular HGB Conc 33.0 g/dl (32-36); Mean Corpuscular Hemoglobin 30.9 pg (26-34); Mean Corpuscular Volume 93.5 fl (80-100); Nucleated Red Blood Cells Absolute Auto 0.000 K/mm3 (0.0-0.012); Nucleated Red Blood Cells Perc 0.0 % (0.0-0.2); Platelet Count Result 212 k/mm3 (150-375); Red Blood Count 4.63 M/mm3 (4.6-6.20); White Blood Count 10.3 K/mm3 (4.5-10.0)
--- NOTE | 2025-05-25 07:49 | ED.GENADULT ---
HPI - General Adult General Chief complaint: Urogenital-Male Stated complaint: kidney stone Time Seen by Provider: 05/25/25 07:30 History of Present Illness HPI narrative: 79-year-old male with prior history of kidney stones presenting to the emergency department for evaluation for acute onset of right flank pain and hematuria. Patient states his last kidney stone was approximately 17 years ago. Patient passed his previous stones without any intervention needed. Patient reports at approximately 3:00 a.m. he had onset of sharp right flank pain with associated nausea and vomiting. Patient states he also noticed hematuria. Patient is not on any blood thinners. Patient is well-appearing at time of evaluation but is requesting medications for pain control. Related Data Home Medications ?Medication ?Instructions ?Recorded ?Confirmed ?Last Taken ?Type allopurinol 100 mg tablet 100 mg PO HS 02/17/21 02/17/21 02/16/21 History aspirin 81 mg tablet 81 mg PO DAILY 02/17/21 02/17/21 02/17/21 History levothyroxine 75 mcg tablet 75 mcg PO DAILY 02/17/21 02/17/21 02/17/21 History lisinopril 40 mg tablet 40 mg PO DAILY 02/17/21 02/17/21 02/17/21 History metoprolol succinate 100 mg 100 mg PO DAILY 02/17/21 02/17/21 02/17/21 History tablet,extended release 24 hr rosuvastatin 20 mg tablet 20 mg PO 02/17/21 02/17/21 02/16/21 History Allergies Allergy/AdvReac Type Severity Reaction Status Date / Time Sulfa (Sulfonamide Allergy Mild ACHEY Verified 05/25/25 07:46 Antibiotics) Review of Systems Review of Systems: All systems reviewed & are unremarkable except as noted in HPI and below PMFSH Social History Social History Gender identity (if verbalized by the patient): Male Exam Narrative: APPEARANCE: Well appearing, no pain, no distress, well-nourished. HEAD: normocephalic, atraumatic. EYES: PERRLA/EOMI, conjunctivae clear. NOSE: Normal no drainage EARS:TMS clear with good light reflex. THROAT: Pharynx clear, no exudate. NECK: Supple. No adenopathy, no masses. RESPIRATORY: Airway patent, respirations nonlabored. Clear to auscultation bilaterally, no rales, rhonchi, wheezing. CARDIOVASCULAR: Regular rate and rhythm without murmurs rubs or gallops. ABDOMINAL: Right CVA tenderness MUSCULOSKELETAL: Moves all extremities. Strength/ROM intact, No edema, No calf tenderness. NEURO: Alert. Cranial nerves II through XII intact. Good gait. Good coordination SKIN: Warm, dry. Normal Color Course Vital Signs Vital signs: Vital Signs Pulse Rate 79 05/25/25 07:40 Respiratory Rate 18 05/25/25 07:40 Blood Pressure 135/78 05/25/25 07:40 Pulse Oximetry 97 05/25/25 07:40 Pulse Rate 69 05/25/25 10:37 Respiratory Rate 18 05/25/25 10:37 Blood Pressure 123/75 05/25/25 10:37 Pulse Oximetry 99 05/25/25 10:37 Medical Decision Making MDM Narrative Medical decision making narrative: 79-year-old male presented to the emergency department for evaluation for right flank pain. Patient does have a leukocytosis of 10.3 stable hemoglobin and normal platelet count. CT abdomen pelvis without contrast was ordered to evaluate for kidney stone. Patient was provided medications for pain control and nausea control along with a L of lactated Ringer's. UA did have red and white blood cells but primarily red blood cells. see the abdomen pelvis that show hydronephrosis of the right kidney due to 6 mm stone in the distal ureter. Patient does have tandem stones the distal left ureter with no hydronephrosis. Bilateral renal stones, severe prostatomegaly. On re-evaluation patient states he does feel improved and patient is resting comfortably. Patient will be provided Zofran, Austin and Flomax for symptom control at home. Patient was educated on the importance of straining his urine and on having close follow-up with Urology. KUB was ordered prior to discharge. All questions concerns were addressed patient was well-appearing at time of discharge. Differential Diagnosis Differential Diagnosis: Colitis, diverticulitis, acute cholecystitis, ureteral calculi, urinary tract infection Vital Signs Vital Signs: Vital Signs Pulse Rate 79 05/25/25 07:40 Respiratory Rate 18 05/25/25 07:40 Blood Pressure 135/78 05/25/25 07:40 Pulse Oximetry 97 05/25/25 07:40 Pulse Rate 69 05/25/25 10:37 Respiratory Rate 18 05/25/25 10:37 Blood Pressure 123/75 05/25/25 10:37 Pulse Oximetry 99 05/25/25 10:37 Lab Data Lab results reviewed: Yes I reviewed the patient's lab results. 05/25/25 07:30 05/25/25 07:30 Labs: Lab Results 05/25/25 Range/Units 07:30 WBC 10.3 H (4.5-10.0) K/mm3 RBC 4.63 (4.6-6.20) M/mm3 Hgb 14.3 (14.0-18.0) g/dL Hct 43.3 (42.0-52.0) % MCV 93.5 (80-100) fl MCH 30.9 (26-34) pg MCHC 33.0 (32-36) g/dl RDW 13.8 (11.5-14.5) % Plt Count 212 (150-375) k/mm3 MPV 10.4 (7.4-10.4) fl Immature Gran % (Auto) 0.5 (0-0.5) % Neut % (Auto) 81.9 H (45.5-73.1) % Lymph % (Auto) 10.4 L (18.3-44.2) % [place] % (Auto) 4.9 (2.6-8.5) % Eos % (Auto) 1.7 (0-4.4) % Baso % (Auto) 0.6 (0.2-1.2) % Lymph # (Auto) 1.07 (0.9-3.2) K/mm3 [place] # (Auto) 0.5 (0.1-0.6) K/mm3 Eos # (Auto) 0.2 (0-0.3) K/mm3 Baso # (Auto) 0.1 (0.0-0.1) K/mm3 Abs Immat Gran (auto) 0.05 H (0.00-0.031) K/mm3 Absolute Neuts (auto) 8.4 H (1.3-6.7) K/mm3 Absolute Nucleated RBC 0.000 (0.0-0.012) K/mm3 Nucleated RBC % 0.0 (0.0-0.2) % Sodium 135 L (137-145) mmol/L Potassium 4.2 (3.4-5.0) mmol/L Chloride 104 (98-107) mmol/L Carbon Dioxide 23 (22-30) mmol/L Anion Gap 8 (4-12) mmol/L BUN 29 H (9-20) mg/dL Creatinine 1.25 (0.7-1.3) mg/dL Estim Creat Clear Calc Not Reportable Estimated GFR 56 L (59 - ) Glucose 144 H (65-110) mg/dL Calcium 8.8 (8.4-10.2) mg/dL Total Bilirubin 2.0 H (0.2-1.3) mg/dL AST 31 (17-59) U/L ALT 22 (6-50) U/L Alkaline Phosphatase 92 (38-126) U/L Total Protein 8.2 (6.3-8.2) g/dL Albumin 4.5 (3.5-5.1) g/dL Urine Color Red H (Yellow) Urine Appearance Turbid H (Clear) Urine pH TNP Ur Specific [place] 1.022 (1.001-1.035) Urine Protein TNP Urine Glucose (UA) TNP Urine Ketones TNP Ur Blood (Man) TNP Urine Nitrate TNP Urine Bilirubin TNP Urine Urobilinogen TNP Add Ur Microanalysis Reviewed Leukocyte Esterase Rfl TNP Urine RBC >100 H (0-2) /hpf Urine WBC 11-20 H (0-3) /hpf Ur Squamous Epith Cells None seen (Few) /hpf Urine Bacteria None seen /hpf Urine Casts 0-2 Imaging Data Radiologist's impression: Impressions Abdomen/Pelvis CT 05/25/25 08:17 IMPRESSION: 1. Hydronephrosis right kidney due to 6 mm stone distal ureter. 2. Tandem stones distal left ureter but no hydronephrosis. 3. Bilateral renal stones. 4. Severe prostatomegaly. 5. Additional findings as above. Discharge Plan Discharge Clinical Impression: Calculus, ureteral Patient Disposition: Home Condition: Stable Instructions: Antibiotic Form, How to Strain Your Urine (ED), Flank Pain (ED) Additional Instructions: Zofran for nausea control. Austin for pain control. Flomax to help you pass the stone. If you have any worsening symptoms please call or return to the emergency department. Have close follow-up with Urology. Patient Language: Slovenian Prescriptions: New hydrocodone-acetaminophen 5-325 mg tablet 1 tablet PO Q12H PRN (Reason: pain) Qty: 14 0RF tamsulosin [Flomax] 0.4 mg capsule 0.4 mg PO DAILY 14 Days Qty: 14 0RF ondansetron 4 mg tablet,disintegrating 4 mg PO Q8H PRN (Reason: nausea and vomiting) Qty: 14 0RF No Action metoprolol succinate 100 mg tablet extended release 24 hr 100 mg PO DAILY allopurinol 100 mg tablet 100 mg PO HS levothyroxine 75 mcg tablet 75 mcg PO DAILY lisinopril 40 mg tablet 40 mg PO DAILY rosuvastatin 20 mg tablet 20 mg PO HS aspirin 81 mg Tablet 81 mg PO DAILY cefixime 400 mg capsule 400 mg PO DAILY 7 Days Qty: 7 0RF Follow-up/Referrals: Paige,Diogenes Hollis MD [Primary Care Provider, Unknown] Thierno Costello MD [Physician, Urology]
[2025-05-25 07:58] LABS: Alanine Aminotransferase 22 U/L (6-50); Albumin Level 4.5 g/dL (3.5-5.1); Alkaline Phosphatase 92 U/L (38-126); Anion Gap 8 mmol/L (4-12); Aspartate Amino Transferase 31 U/L (17-59); Bilirubin,Total 2.0 mg/dL (0.2-1.3); Blood Urea Nitrogen 29 mg/dL (9-20); Calcium 8.8 mg/dL (8.4-10.2); Carbon Dioxide 23 mmol/L (22-30); Chloride 104 mmol/L (98-107); Estimated Glomerular Filt Rate 56; Glucose 144 mg/dL (65-110); Potassium 4.2 mmol/L (3.4-5.0); Sodium 135 mmol/L (137-145); Total Protein 8.2 g/dL (6.3-8.2)
[2025-05-25] MEDS: LACTATED RINGERS 1,000 ML 999 ML IV CONT (08:01)
[2025-05-25] MEDS: ONDANSETRON INJ 4 MG/2 ML VIAL IV PUSH (08:01)
[2025-05-25] MEDS: HYDROmorphone HCL INJ (*CRX) 1 MG/ML SYR 0.5 MG IV PUSH ×2 (08:02→09:42)
[2025-05-25 08:05] LABS: Add Urine Microscopic? YES; Appearance Urine Turbid (Clear); Need Manual Microscopic Reviewed; Non Pathogenic Casts 0-2; Specific Grav Ur 1.022 (1.001-1.035)
[2025-05-25 09:44] VITALS: BP 124/59; PULSE 61; RESP 18; O2SAT 96
[2025-05-25] MEDS: HYDROcodone/acetaminophen (*CRX) 5-325 MG TABLET 1 TAB PO (10:32)
[2025-05-25 10:37] VITALS: BP 123/75; PULSE 69; RESP 18; O2SAT 99
[2025-05-25] MEDS: TAMSULOSIN HCL 0.4 MG CAPSULE PO (10:39)
== END 2025-05-25 10:45 | disposition home or self-care (01) ==
PROVIDERS: Emergency Provider Emergency Medicine; PCP Family Medicine
DX: N13.2 Hydronephrosis with renal and ureteral calculous obstruction (principal); Z87.442 Personal history of urinary calculi; N40.0 Benign prostatic hyperplasia without lower urinary tract symptoms; Z79.82 Long term (current) use of aspirin
CPT/HCPCS: 36415; 74176; 80053; 81001; 85025; 87086; 87186; 96361; 96374; 96375; 96376; 99284; A9270; J1171; J2405; J7120